=== PATIENT | female | born 1940 | race Caucasian/White ===

== ENCOUNTER 2017-07-12 17:08 | Inpatient (IN) | payer MEDICARE ==
[2017-07-12] MEDS ORDERED: Acetaminophen 325 MG TAB PO PRN (18:29)
[2017-07-12] MEDS ORDERED: Nystatin Powder 15 GM BOT TOP PRN (18:31)
[2017-07-12] MEDS ORDERED: Dextrose 5% in Water 1,000 ML IV PRN (18:35)
[2017-07-12] MEDS ORDERED: Dextrose 50% Abboject 50 ML SYRINGE SLOW IVP PRN (18:35)
[2017-07-12] MEDS ORDERED: GLIPIZIDE PO SCH (21:00)
[2017-07-12] MEDS ORDERED: METFORMIN HCL PO SCH (21:00)
[2017-07-12] MEDS: Apixaban 5 MG TAB PO SCH (21:12)
[2017-07-12] MEDS: Famotidine 20 MG TAB PO SCH (21:12)
[2017-07-12] MEDS: Atorvastatin Calcium 10 MG TAB PO SCH (21:12)
[2017-07-12] MEDS: Docusate 100 MG CAP PO SCH (21:12)
[2017-07-12] MEDS: Gabapentin 300 MG CAP PO SCH (21:13)
[2017-07-12] MEDS: glipiZIDE 5 MG TAB PO SCH (21:13)
[2017-07-12] MEDS: Metoprolol Tartrate 50 MG TAB PO SCH (21:14)
[2017-07-12] MEDS: metFORMIN 500 MG TAB PO SCH (21:15)
[2017-07-12] MEDS ORDERED: Insulin Regular 300 UNITS/3 ML VIAL SC PRN (21:23)
[2017-07-13] MEDS: Aspirin 325 MG TAB PO SCH (08:20)
[2017-07-13] MEDS: Gabapentin 300 MG CAP PO SCH ×2 (08:20→20:17)
[2017-07-13] MEDS: Furosemide 40 MG TAB PO SCH ×2 (08:20→15:13)
[2017-07-13] MEDS: metFORMIN 500 MG TAB PO SCH ×3 (08:20→20:18)
[2017-07-13] MEDS: Metoprolol Tartrate 50 MG TAB PO SCH ×2 (08:20→20:18)
[2017-07-13] MEDS: Metolazone 5 MG TAB PO SCH (08:20)
[2017-07-13] MEDS: Vit A,C & E/Lutein/Minerals Tablet PO SCH (08:20)
[2017-07-13] MEDS: Docusate 100 MG CAP PO SCH ×2 (08:20→20:28)
[2017-07-13] MEDS: Floranex Packet PO SCH (08:21)
[2017-07-13] MEDS: Famotidine 20 MG TAB PO SCH ×2 (08:21→20:18)
[2017-07-13] MEDS: glipiZIDE 5 MG TAB PO SCH ×3 (08:21→20:18)
[2017-07-13] MEDS: Apixaban 5 MG TAB PO SCH ×2 (08:21→20:28)
[2017-07-13] MEDS: Potassium Chloride 20 MEQ TAB PO SCH (08:21)
--- NOTE | 2017-07-13 08:21 | HP ---
DATE OF ADMISSION: 07/12/2017 ADMITTING PHYSICIAN: Stephen Funk MD REASON FOR ADMISSION: Extended stay in [facility] for physical deconditioning, status post aortic valve replacement, status post pacemaker placement, status post two bradycardic cardiac arrest. HISTORY OF PRESENT ILLNESS: Ms. Pollack is a 76-year-old female with a past medical history of coronary artery disease; aortic stenosis; dyslipidemia; hypertension; diabetes, type 2. Patient presented to [facility] on 06/17/2017, for an elective cardiac catheterization done by Dr. Butt due to worsening dyspnea and weakness. She was found to have LAD disease of 70 % with severe aortic stenosis. Patient was seen by cardiothoracic surgeon, Dr. Rodrigo Wiseman and decision was made to have an aortic valve replacement with bioprosthetic valve and coronary artery bypass grafting from [facility] with mammary artery to LAD. Surgery was done on 06/18/2017, and patient tolerated the procedure and was extubated on 06/19/2017, in ICU. Unfortunately, by the evening of 06/19/2017, patient became hypotensive and bradycardic and she coded. She had complete AV block and had a temporary pacemaker placed and high doses of pressors were needed to keep her stable. Patient was seen by Correction Officer, Dr. Juan C Jorgensen who recommended a permanent pacemaker when stable. On 06/20/2017 p.m., patient went back to complete AV block and hypotension as temporary pacemaker was dislodged. Patient coded and was emergently taken to phlebotomist medical lab assistant for placement of pacemaker again. On 06/21/2017, she received a dual chamber permanent pacemaker by Dr. Jorgensen. Due to multiple coding, patient developed acute hypoxic respiratory failure and had to be ventilated and slowly weaned off. Patient's hospitalization again was complicated by postoperative atrial fibrillation as she had to be placed on IV amiodarone and subsequently changed to oral amiodarone and this was rate controlled. She was initially anticoagulated with Lovenox, but changed to Eliquis prior to discharge. Preoperative imaging on CT showed a subcarinal adenopathy. Patient had a lymph node in the subcarinal area that was taken for biopsy during aortic valve placement. The patient was seen by credit card associate, Dr. Ruiz and findings were consistent for B-cell lymphoma. Patient's final diagnoses form [facility] are still pending and Dr. Ruiz recommend no urgent therapy required. This was discussed with patient and family. Patient had a CT done, which showed bilateral pleural effusions and this progressively worsened during admission. Effusion was secondary to volume resuscitation after 2 codes and she had to have thoracocentesis on the right on 06/27/2017, and on the left on 06/28/2017, before she was successfully extubated. Patient had a very complicated hospitalization, she also complained of right wrist pain and was seen by Dr. Camp who recommended NSAIDs due to osteoarthritis. Patient due to all complications sustained, became physically deconditioned. The patient was subsequently recommended will a need a long-term rehabilitation prior to discharge to her home. Her insurance denied her stay for inpatient penitentiary rehabilitation and she was subsequently transferred to [facility] to start skilled rehabilitation on 07/12/2017. Upon evaluation of patient today, she is alert, awake, and oriented x3. She is very weak, but denies any chest pain, shortness of breath, dizziness, abdominal pain, nausea, or vomiting. Patient denies any fever. Patient was happy to be out of hospital and just excited to start rehabilitation process prior to discharge back to the home. PAST MEDICAL HISTORY: Diabetes type 2, hypertension, hyperlipidemia, GERD, aortic stenosis, coronary artery disease. PAST SURGICAL HISTORY: Hysterectomy; carpal tunnel release; gastric surgery, now is status post thoracocentesis x2; status post aortic valve replacement. SOCIAL HISTORY: Denies tobacco use, denies alcohol use. Patient is , lives with her and daughter in the area. ALLERGIES: To PENICILLIN and SULFA. MEDICATIONS: Amiodarone 200 mg daily, Eliquis 5 mg b.i.d., aspirin 325 mg daily , Lasix 40 mg b.i.d., Neurontin 300 mg b.i.d., metolazone 5 mg daily, Lopressor 50 mg b.i.d., glipizide/metformin 1 tablet t.i.d., lovastatin 40 daily, Tarceva 20units every morning, potassium chloride 20 mEq daily. REVIEW OF SYSTEMS: Constitutional: Denies fevers, chills, or weight loss. Complains of generalized weakness. Eyes: Denies vision changes, eye pain. Respiratory: Denies cough, complains of mild shortness of breath. Cardiovascular: Denies chest pain, palpitations, or dizziness. Gastrointestinal: Denies nausea, vomiting, diarrhea, or constipation. Genitourinary: Denies incontinence, dysuria, or hematuria. Skin: Denies any rashes, has multiple bruising due to IV sites. Musculoskeletal: Complains of generalized weakness. Denies any joint pain or swelling. Neurological: Complains of weakness, denies numbness. Psychiatric: Denies hallucinations, delusions, complains of anxiety. PHYSICAL EXAMINATION: VITAL SIGNS: Temperature 97.9, pulse of 78, respirations 20, O2 saturation 90% , blood pressure 111/53. GENERAL APPEARANCE: Patient is alert, awake, oriented x3. Lying comfortably in bed, in no apparent distress. HEENT: Normocephalic, atraumatic. Sclerae icteric. Pupils are round, equal bilateral, reactive to light. Oral mucous membranes are moist. NECK: Supple, no lymphadenopathy, or thyromegaly. CARDIOVASCULAR: Rhythm is regular. Patient has normal S1 and S2. ABDOMEN: Positive bowel sounds, soft, nontender, and nondistended. EXTREMITIES: Patient has bilateral trace edema. MUSCULOSKELETAL: No swelling noted to the joints. NEUROLOGICAL: No focal deficits. PSYCHIATRIC: No hallucinations, no delusions. SKIN: Patient does have a large ecchymoses to abdomen, she does have well- healed with incisions to midline chest and to the left upper chest wall, nontender, no erythema or drainage to the sites. In the groin area, patient has some redness with no blistering and no wheezing noted. ASSESSMENT: 1. Physical deconditioning. 2. Status post aortic valve replacement and left internal mammary artery to LAD. 3. Status post bilateral pleural effusion with thoracocentesis on each side. 4. Status post permanent pacer. 5. Newly diagnosed lymphoma. 6. Diabetes, type 2. 7. Hyperlipidemia. 8. Hypertension. 9. Atrial Fibrillation, rate controlled. PLAN: The patient is to be admitted to [facility] swing bed for skilled rehabilitation and gait strengthening. We will consult physical therapy for strengthening in order to gain modified independence with gait and occupational therapy to help with activities of daily living prior to returning to the home. We will consult speech therapy due to prolonged intubation process. We will resume patient's home medications. We will monitor the patient closely for any medical comorbidity that may interfere with rehabilitation process. We will monitor the patient closely for any cardiac event or electrolyte abnormalities. We will place patient on Pepcid b.i.d. for gastrointestinal prophylaxis. For deep venous thrombosis prophylaxis, patient is on Eliquis and aspirin 325 mg. ESTIMATED LENGTH OF STAY: Four to six weeks. CODE STATUS: Patient is a FULL CODE. MTDD
[2017-07-13] MEDS ORDERED: FLU VACC TS2017-18 (>65YR) 0.5 ML SYRINGE IM ONE (09:00)
[2017-07-13] MEDS: Insulin Regular 300 UNITS/3 ML VIAL SC PRN ×2 (12:01→18:20)
[2017-07-13] MEDS: Atorvastatin Calcium 10 MG TAB PO SCH (20:17)
[2017-07-14] MEDS: Furosemide 40 MG TAB PO SCH ×2 (08:51→14:45)
[2017-07-14] MEDS: Famotidine 20 MG TAB PO SCH ×2 (08:52→20:13)
[2017-07-14] MEDS: metFORMIN 500 MG TAB PO SCH ×3 (08:52→20:15)
[2017-07-14] MEDS: Metoprolol Tartrate 50 MG TAB PO SCH ×2 (08:52→20:15)
[2017-07-14] MEDS: Docusate 100 MG CAP PO SCH ×2 (08:52→20:13)
[2017-07-14] MEDS: Potassium Chloride 20 MEQ TAB PO SCH (08:52)
[2017-07-14] MEDS: glipiZIDE 5 MG TAB PO SCH ×3 (08:52→20:14)
[2017-07-14] MEDS: Gabapentin 300 MG CAP PO SCH ×2 (08:52→20:14)
[2017-07-14] MEDS: Vit A,C & E/Lutein/Minerals Tablet PO SCH (08:52)
[2017-07-14] MEDS: Aspirin 325 MG TAB PO SCH (08:53)
[2017-07-14] MEDS: Apixaban 5 MG TAB PO SCH ×2 (08:53→20:13)
[2017-07-14] MEDS: Floranex Packet PO SCH (08:54)
[2017-07-14] MEDS: Metolazone 5 MG TAB PO SCH (08:54)
[2017-07-14] MEDS: Insulin Regular 300 UNITS/3 ML VIAL SC PRN ×2 (11:56→17:14)
[2017-07-14] MEDS: Atorvastatin Calcium 10 MG TAB PO SCH (20:13)
[2017-07-15 05:29] LABS: Anion Gap 17 mmol/L (10-20); BUN (Urea Nitrogen) 24 mg/dL (9.8-20.1); Calc. Creatinine Clearance 73 mL/min (70-130); Calcium 8.2 mg/dL (7.8-10.44); Carbon Dioxide 27 mmol/L (23-31); Chloride 97 mmol/L (98-107); Estimated GFR-MDRD 60; Glucose 127 mg/dL (83-110); Sodium 138 mmol/L (136-145)
[2017-07-15 05:30] LABS: #Basophils 0.2 thou/uL (0.0-0.2); #Eosinphils 0.3 thou/uL (0.0-0.7); #Lymphocytes 3.5 thou/uL (1.20-3.40); #Neutrophils 4.6 thou/uL (1.40-6.50); %Basophils 2.1 % (0.0-1.0); %Eosinophils 3.5 % (0.0-10.0); %Lymphocytes 36.6 % (21.0-51.0); %Monocytes 10.4 % (0.0-10.0); %Neutrophils 47.4 % (42.0-75.0); Hemoglobin 9.9 g/dL (12.0-16.0); Mean Corpuscular HGB CONC 32.7 g/dL (32.0-36.0); Mean Corpuscular Hemoglobin 29.4 pg (27.0-31.0); Mean Corpuscular Volume 89.8 fl (81.0-99.0); Mean Platelet Volume 9.6 fL (7.4-10.4); Platelet Count 186 thou/uL (130-400); RBC Distribution Width 15.8 % (11.5-14.5); Red Blood Cell (RBC) Count 3.38 mill/uL (4.20-5.40); White Blood Cell (WBC) Count 9.7 thou/uL (4.8-10.8)
[2017-07-15] MEDS: Potassium Chloride 20 MEQ TAB PO SCH (08:47)
[2017-07-15] MEDS: Apixaban 5 MG TAB PO SCH ×2 (08:48→20:49)
[2017-07-15] MEDS: Floranex Packet PO SCH (08:48)
[2017-07-15] MEDS: Aspirin 325 MG TAB PO SCH (08:48)
[2017-07-15] MEDS: Famotidine 20 MG TAB PO SCH ×2 (08:49→20:49)
[2017-07-15] MEDS: Docusate 100 MG CAP PO SCH ×2 (08:49→20:49)
[2017-07-15] MEDS: Gabapentin 300 MG CAP PO SCH ×2 (08:49→20:49)
[2017-07-15] MEDS: Furosemide 40 MG TAB PO SCH ×2 (08:49→14:28)
[2017-07-15] MEDS: glipiZIDE 5 MG TAB PO SCH ×3 (08:50→20:50)
[2017-07-15] MEDS: Metolazone 5 MG TAB PO SCH (08:51)
[2017-07-15] MEDS: metFORMIN 500 MG TAB PO SCH ×3 (08:51→20:52)
[2017-07-15] MEDS: Vit A,C & E/Lutein/Minerals Tablet PO SCH (08:52)
[2017-07-15] MEDS: Metoprolol Tartrate 50 MG TAB PO SCH ×2 (08:52→20:52)
[2017-07-15] MEDS ORDERED: Multivitamin W/ Minerals 1 TAB PO SCH (11:30)
[2017-07-15] MEDS ORDERED: Folic Acid 1 MG TAB PO SCH (11:30)
[2017-07-15] MEDS: Multivitamin W/ Minerals 1 TAB PO SCH (11:54)
[2017-07-15] MEDS: Insulin Regular 300 UNITS/3 ML VIAL SC PRN (11:56)
[2017-07-15] MEDS: Non-Formulary Item 1 EACH (Insulin Degludec [Tresiba Flextouch U-100] 20 UNIT) SQ SCH ×3 (12:50→12:57)
[2017-07-15] MEDS: PNV CMB PO SCH ×2 (12:56→12:57)
[2017-07-15] MEDS: IRON PO SCH ×2 (12:56→12:57)
[2017-07-15] MEDS: FOLIC ACID PO SCH ×2 (12:56→12:57)
[2017-07-15] MEDS: [UNRECOGNIZED DRUG - OTHER] PO SCH ×2 (12:56→12:57)
[2017-07-15] MEDS: Atorvastatin Calcium 10 MG TAB PO SCH (20:49)
[2017-07-15] MEDS: Levemir Flexpen 100 UNITS/ML PEN SC SCH (20:51)
[2017-07-16] MEDS: Potassium Chloride 20 MEQ TAB PO SCH (08:41)
[2017-07-16] MEDS: Floranex Packet PO SCH (08:41)
[2017-07-16] MEDS: Docusate 100 MG CAP PO SCH ×2 (08:42→20:54)
[2017-07-16] MEDS: Folic Acid 1 MG TAB PO SCH (08:42)
[2017-07-16] MEDS: Apixaban 5 MG TAB PO SCH ×2 (08:42→20:55)
[2017-07-16] MEDS: Famotidine 20 MG TAB PO SCH ×2 (08:42→20:54)
[2017-07-16] MEDS: Aspirin 325 MG TAB PO SCH (08:42)
[2017-07-16] MEDS: metFORMIN 500 MG TAB PO SCH ×3 (08:43→20:54)
[2017-07-16] MEDS: Furosemide 40 MG TAB PO SCH ×2 (08:43→15:03)
[2017-07-16] MEDS: Gabapentin 300 MG CAP PO SCH ×2 (08:43→20:54)
[2017-07-16] MEDS: Levemir Flexpen 100 UNITS/ML PEN SC SCH ×2 (08:43→20:55)
[2017-07-16] MEDS: Metoprolol Tartrate 50 MG TAB PO SCH ×2 (08:44→20:55)
[2017-07-16] MEDS: Vit A,C & E/Lutein/Minerals Tablet PO SCH (08:44)
[2017-07-16] MEDS: Multivitamin W/ Minerals 1 TAB PO SCH (08:44)
[2017-07-16] MEDS: Metolazone 5 MG TAB PO SCH (08:44)
[2017-07-16] MEDS: glipiZIDE 5 MG TAB PO SCH ×3 (08:45→20:54)
[2017-07-16] MEDS: Ondansetron ODT 4 MG TAB PO PRN (10:35)
[2017-07-16] MEDS: Insulin Regular 300 UNITS/3 ML VIAL SC PRN (12:04)
[2017-07-16] MEDS: Atorvastatin Calcium 10 MG TAB PO SCH (20:54)
[2017-07-17 06:21] LABS: Hemoglobin 9.8 g/dL (12.0-16.0); Platelet Count 184 thou/uL (130-400)
[2017-07-17 06:43] LABS: Anion Gap 13 mmol/L (10-20); BUN (Urea Nitrogen) 22 mg/dL (9.8-20.1); Calc. Creatinine Clearance 64 mL/min (70-130); Calcium 8.2 mg/dL (7.8-10.44); Carbon Dioxide 31 mmol/L (23-31); Chloride 96 mmol/L (98-107); Estimated GFR-MDRD 52; Glucose 83 mg/dL (83-110); Sodium 137 mmol/L (136-145)
[2017-07-17 06:56] LABS: Potassium 2.8 mmol/L (3.5-5.1)
[2017-07-17] MEDS ORDERED: Potassium Chloride 20 MEQ TAB PO SCH (07:45)
[2017-07-17] MEDS: Apixaban 5 MG TAB PO SCH ×2 (08:49→20:24)
[2017-07-17] MEDS: Furosemide 40 MG TAB PO SCH ×2 (08:50→14:53)
[2017-07-17] MEDS: Famotidine 20 MG TAB PO SCH ×2 (08:50→20:24)
[2017-07-17] MEDS: Gabapentin 300 MG CAP PO SCH ×2 (08:50→20:24)
[2017-07-17] MEDS: Aspirin 325 MG TAB PO SCH (08:50)
[2017-07-17] MEDS: glipiZIDE 5 MG TAB PO SCH ×3 (08:50→20:24)
[2017-07-17] MEDS: metFORMIN 500 MG TAB PO SCH ×3 (08:50→20:24)
[2017-07-17] MEDS: Potassium Chloride 20 MEQ TAB PO SCH (08:50)
[2017-07-17] MEDS: Folic Acid 1 MG TAB PO SCH (08:50)
[2017-07-17] MEDS: Levemir Flexpen 100 UNITS/ML PEN SC SCH ×2 (08:51→20:25)
[2017-07-17] MEDS: Metoprolol Tartrate 50 MG TAB PO SCH ×2 (08:51→20:24)
[2017-07-17] MEDS: Multivitamin W/ Minerals 1 TAB PO SCH (08:51)
[2017-07-17] MEDS: Docusate 100 MG CAP PO SCH ×2 (08:51→20:23)
[2017-07-17] MEDS: Floranex Packet PO SCH (08:51)
[2017-07-17] MEDS: Vit A,C & E/Lutein/Minerals Tablet PO SCH (08:51)
[2017-07-17] MEDS: Metolazone 5 MG TAB PO SCH (08:51)
[2017-07-17] MEDS: Insulin Regular 300 UNITS/3 ML VIAL SC PRN (12:11)
[2017-07-17] MEDS: Ondansetron ODT 4 MG TAB PO PRN (14:59)
[2017-07-17] MEDS ORDERED: Mag-Al Plus 1200 MG/1200 MG/120 MG/30 ML UDCUP PO PRN (16:50)
[2017-07-17] MEDS: Atorvastatin Calcium 10 MG TAB PO SCH (20:23)
[2017-07-18 05:48] LABS: Potassium 3.8 mmol/L (3.5-5.1)
[2017-07-18] MEDS: Multivitamin W/ Minerals 1 TAB PO SCH (08:23)
[2017-07-18] MEDS: Docusate 100 MG CAP PO SCH ×2 (08:23→20:39)
[2017-07-18] MEDS: Aspirin 325 MG TAB PO SCH (08:23)
[2017-07-18] MEDS: Potassium Chloride 20 MEQ TAB PO SCH (08:23)
[2017-07-18] MEDS: Metolazone 5 MG TAB PO SCH (08:23)
[2017-07-18] MEDS: Metoprolol Tartrate 50 MG TAB PO SCH ×2 (08:23→20:41)
[2017-07-18] MEDS: Furosemide 40 MG TAB PO SCH ×2 (08:23→14:53)
[2017-07-18] MEDS: Apixaban 5 MG TAB PO SCH ×2 (08:24→20:38)
[2017-07-18] MEDS: glipiZIDE 5 MG TAB PO SCH ×3 (08:24→20:40)
[2017-07-18] MEDS: metFORMIN 500 MG TAB PO SCH ×3 (08:24→20:41)
[2017-07-18] MEDS: Folic Acid 1 MG TAB PO SCH (08:24)
[2017-07-18] MEDS: Famotidine 20 MG TAB PO SCH ×2 (08:24→20:39)
[2017-07-18] MEDS: Vit A,C & E/Lutein/Minerals Tablet PO SCH (08:24)
[2017-07-18] MEDS: Gabapentin 300 MG CAP PO SCH ×2 (08:24→20:39)
[2017-07-18] MEDS: Floranex Packet PO SCH (08:25)
[2017-07-18] MEDS: Levemir Flexpen 100 UNITS/ML PEN SC SCH ×2 (08:25→20:40)
[2017-07-18] MEDS: Insulin Regular 300 UNITS/3 ML VIAL SC PRN (12:00)
[2017-07-18] MEDS: Atorvastatin Calcium 10 MG TAB PO SCH (20:38)
[2017-07-19 05:13] LABS: Hemoglobin 9.7 g/dL (12.0-16.0); Platelet Count 191 thou/uL (130-400)
[2017-07-19] MEDS: Floranex Packet PO SCH (08:07)
[2017-07-19] MEDS: Docusate 100 MG CAP PO SCH ×2 (08:08→20:39)
[2017-07-19] MEDS: Aspirin 325 MG TAB PO SCH (08:08)
[2017-07-19] MEDS: Potassium Chloride 20 MEQ TAB PO SCH (08:08)
[2017-07-19] MEDS: Multivitamin W/ Minerals 1 TAB PO SCH (08:08)
[2017-07-19] MEDS: glipiZIDE 5 MG TAB PO SCH ×3 (08:09→20:39)
[2017-07-19] MEDS: Metoprolol Tartrate 50 MG TAB PO SCH ×2 (08:10→20:39)
[2017-07-19] MEDS: Gabapentin 300 MG CAP PO SCH ×2 (08:10→20:39)
[2017-07-19] MEDS: Vit A,C & E/Lutein/Minerals Tablet PO SCH (08:10)
[2017-07-19] MEDS: Apixaban 5 MG TAB PO SCH ×2 (08:10→20:38)
[2017-07-19] MEDS: Famotidine 20 MG TAB PO SCH ×2 (08:10→20:40)
[2017-07-19] MEDS: Folic Acid 1 MG TAB PO SCH (08:10)
[2017-07-19] MEDS: metFORMIN 500 MG TAB PO SCH ×3 (08:10→20:39)
[2017-07-19] MEDS: Furosemide 40 MG TAB PO SCH ×2 (08:10→13:51)
[2017-07-19] MEDS: Metolazone 5 MG TAB PO SCH (08:11)
[2017-07-19] MEDS: Levemir Flexpen 100 UNITS/ML PEN SC SCH ×2 (08:11→20:40)
[2017-07-19] MEDS: Insulin Regular 300 UNITS/3 ML VIAL SC PRN ×2 (08:16→11:30)
[2017-07-19] MEDS: Atorvastatin Calcium 10 MG TAB PO SCH (20:39)
[2017-07-20] MEDS: Vit A,C & E/Lutein/Minerals Tablet PO SCH (09:26)
[2017-07-20] MEDS: Metolazone 5 MG TAB PO SCH (09:27)
[2017-07-20] MEDS: Potassium Chloride 20 MEQ TAB PO SCH (09:27)
[2017-07-20] MEDS: Apixaban 5 MG TAB PO SCH ×2 (09:27→20:28)
[2017-07-20] MEDS: metFORMIN 500 MG TAB PO SCH ×3 (09:28→20:28)
[2017-07-20] MEDS: Furosemide 40 MG TAB PO SCH ×2 (09:28→15:30)
[2017-07-20] MEDS: Folic Acid 1 MG TAB PO SCH (09:28)
[2017-07-20] MEDS: Docusate 100 MG CAP PO SCH ×2 (09:28→20:27)
[2017-07-20] MEDS: glipiZIDE 5 MG TAB PO SCH ×3 (09:28→20:27)
[2017-07-20] MEDS: Gabapentin 300 MG CAP PO SCH ×2 (09:29→20:28)
[2017-07-20] MEDS: Aspirin 325 MG TAB PO SCH (09:29)
[2017-07-20] MEDS: Metoprolol Tartrate 50 MG TAB PO SCH ×2 (09:29→20:28)
[2017-07-20] MEDS: Famotidine 20 MG TAB PO SCH ×2 (09:29→20:27)
[2017-07-20] MEDS: Floranex Packet PO SCH (09:30)
[2017-07-20] MEDS: Multivitamin W/ Minerals 1 TAB PO SCH (09:31)
[2017-07-20] MEDS: Levemir Flexpen 100 UNITS/ML PEN SC SCH ×2 (10:24→20:28)
[2017-07-20] MEDS: Insulin Regular 300 UNITS/3 ML VIAL SC PRN (13:51)
[2017-07-20] MEDS: Atorvastatin Calcium 10 MG TAB PO SCH (20:27)
[2017-07-21 05:31] LABS: Hemoglobin 9.9 g/dL (12.0-16.0); Platelet Count 214 thou/uL (130-400)
[2017-07-21] MEDS: Folic Acid 1 MG TAB PO SCH (08:10)
[2017-07-21] MEDS: Potassium Chloride 20 MEQ TAB PO SCH (08:10)
[2017-07-21] MEDS: Aspirin 325 MG TAB PO SCH (08:10)
[2017-07-21] MEDS: glipiZIDE 5 MG TAB PO SCH ×3 (08:11→20:32)
[2017-07-21] MEDS: Docusate 100 MG CAP PO SCH ×2 (08:11→20:32)
[2017-07-21] MEDS: Apixaban 5 MG TAB PO SCH ×2 (08:11→20:32)
[2017-07-21] MEDS: metFORMIN 500 MG TAB PO SCH ×3 (08:11→20:32)
[2017-07-21] MEDS: Levemir Flexpen 100 UNITS/ML PEN SC SCH ×2 (08:12→20:33)
[2017-07-21] MEDS: Metoprolol Tartrate 50 MG TAB PO SCH ×2 (08:12→20:32)
[2017-07-21] MEDS: Multivitamin W/ Minerals 1 TAB PO SCH (08:12)
[2017-07-21] MEDS: Famotidine 20 MG TAB PO SCH ×2 (08:12→20:32)
[2017-07-21] MEDS: Gabapentin 300 MG CAP PO SCH ×2 (08:12→20:32)
[2017-07-21] MEDS: Metolazone 5 MG TAB PO SCH (08:12)
[2017-07-21] MEDS: Furosemide 40 MG TAB PO SCH ×2 (08:12→14:15)
[2017-07-21] MEDS: Vit A,C & E/Lutein/Minerals Tablet PO SCH (08:12)
[2017-07-21] MEDS: Floranex Packet PO SCH (08:13)
[2017-07-21] MEDS: Insulin Regular 300 UNITS/3 ML VIAL SC PRN (11:40)
[2017-07-21] MEDS: Atorvastatin Calcium 10 MG TAB PO SCH (20:32)
[2017-07-22] MEDS: Aspirin 325 MG TAB PO SCH (08:43)
[2017-07-22] MEDS: Potassium Chloride 20 MEQ TAB PO SCH (08:43)
[2017-07-22] MEDS: Famotidine 20 MG TAB PO SCH ×2 (08:43→20:23)
[2017-07-22] MEDS: Floranex Packet PO SCH (08:43)
[2017-07-22] MEDS: Docusate 100 MG CAP PO SCH ×2 (08:44→20:24)
[2017-07-22] MEDS: Gabapentin 300 MG CAP PO SCH ×2 (08:44→20:23)
[2017-07-22] MEDS: Metolazone 5 MG TAB PO SCH (08:44)
[2017-07-22] MEDS: Vit A,C & E/Lutein/Minerals Tablet PO SCH (08:44)
[2017-07-22] MEDS: metFORMIN 500 MG TAB PO SCH ×3 (08:44→20:24)
[2017-07-22] MEDS: Folic Acid 1 MG TAB PO SCH (08:44)
[2017-07-22] MEDS: Metoprolol Tartrate 50 MG TAB PO SCH ×2 (08:45→20:24)
[2017-07-22] MEDS: glipiZIDE 5 MG TAB PO SCH ×3 (08:45→20:24)
[2017-07-22] MEDS: Multivitamin W/ Minerals 1 TAB PO SCH (08:45)
[2017-07-22] MEDS: Apixaban 5 MG TAB PO SCH ×2 (08:45→20:24)
[2017-07-22] MEDS: Levemir Flexpen 100 UNITS/ML PEN SC SCH ×2 (08:48→20:24)
[2017-07-22] MEDS: Furosemide 40 MG TAB PO SCH ×2 (08:48→13:43)
[2017-07-22] MEDS: Insulin Regular 300 UNITS/3 ML VIAL SC PRN (12:01)
[2017-07-22] MEDS: Atorvastatin Calcium 10 MG TAB PO SCH (20:24)
[2017-07-23 06:36] LABS: Hemoglobin 9.7 g/dL (12.0-16.0); Platelet Count 223 thou/uL (130-400)
[2017-07-23] MEDS: Docusate 100 MG CAP PO SCH ×2 (09:05→20:38)
[2017-07-23] MEDS: Potassium Chloride 20 MEQ TAB PO SCH (09:05)
[2017-07-23] MEDS: Floranex Packet PO SCH (09:05)
[2017-07-23] MEDS: Folic Acid 1 MG TAB PO SCH (09:05)
[2017-07-23] MEDS: Apixaban 5 MG TAB PO SCH ×2 (09:05→20:38)
[2017-07-23] MEDS: metFORMIN 500 MG TAB PO SCH ×3 (09:05→20:37)
[2017-07-23] MEDS: Vit A,C & E/Lutein/Minerals Tablet PO SCH (09:05)
[2017-07-23] MEDS: Gabapentin 300 MG CAP PO SCH ×2 (09:06→20:38)
[2017-07-23] MEDS: Metoprolol Tartrate 50 MG TAB PO SCH ×2 (09:06→20:38)
[2017-07-23] MEDS: Aspirin 325 MG TAB PO SCH (09:06)
[2017-07-23] MEDS: Famotidine 20 MG TAB PO SCH ×2 (09:06→20:37)
[2017-07-23] MEDS: Multivitamin W/ Minerals 1 TAB PO SCH (09:06)
[2017-07-23] MEDS: Levemir Flexpen 100 UNITS/ML PEN SC SCH ×2 (09:06→20:40)
[2017-07-23] MEDS: glipiZIDE 5 MG TAB PO SCH ×3 (09:06→20:37)
[2017-07-23] MEDS: Furosemide 40 MG TAB PO SCH ×2 (09:06→14:37)
[2017-07-23] MEDS: Metolazone 5 MG TAB PO SCH (09:06)
[2017-07-23] MEDS: Insulin Regular 300 UNITS/3 ML VIAL SC PRN (12:02)
[2017-07-23] MEDS: Atorvastatin Calcium 10 MG TAB PO SCH (20:38)
[2017-07-24] MEDS: Potassium Chloride 20 MEQ TAB PO SCH (08:44)
[2017-07-24] MEDS: Apixaban 5 MG TAB PO SCH ×2 (08:45→20:07)
[2017-07-24] MEDS: Floranex Packet PO SCH (08:45)
[2017-07-24] MEDS: Docusate 100 MG CAP PO SCH ×2 (08:45→20:07)
[2017-07-24] MEDS: Famotidine 20 MG TAB PO SCH ×2 (08:45→20:07)
[2017-07-24] MEDS: Aspirin 325 MG TAB PO SCH (08:45)
[2017-07-24] MEDS: Folic Acid 1 MG TAB PO SCH (08:45)
[2017-07-24] MEDS: glipiZIDE 5 MG TAB PO SCH ×3 (08:46→20:08)
[2017-07-24] MEDS: Furosemide 40 MG TAB PO SCH ×2 (08:46→14:39)
[2017-07-24] MEDS: Gabapentin 300 MG CAP PO SCH ×2 (08:46→20:07)
[2017-07-24] MEDS: metFORMIN 500 MG TAB PO SCH ×3 (08:47→20:09)
[2017-07-24] MEDS: Levemir Flexpen 100 UNITS/ML PEN SC SCH ×2 (08:47→20:11)
[2017-07-24] MEDS: Multivitamin W/ Minerals 1 TAB PO SCH (08:48)
[2017-07-24] MEDS: Metolazone 5 MG TAB PO SCH (08:48)
[2017-07-24] MEDS: Metoprolol Tartrate 50 MG TAB PO SCH ×2 (08:48→20:09)
[2017-07-24] MEDS: Vit A,C & E/Lutein/Minerals Tablet PO SCH (08:48)
[2017-07-24] MEDS: Insulin Regular 300 UNITS/3 ML VIAL SC PRN (12:22)
[2017-07-24] MEDS: Atorvastatin Calcium 10 MG TAB PO SCH (20:07)
[2017-07-25 05:22] LABS: Hemoglobin 9.9 g/dL (12.0-16.0); Platelet Count 240 thou/uL (130-400)
[2017-07-25 05:44] VITALS: BMI 29.4
[2017-07-25] MEDS: Metoprolol Tartrate 50 MG TAB PO SCH ×2 (08:26→21:34)
[2017-07-25] MEDS: Furosemide 40 MG TAB PO SCH ×2 (08:26→14:22)
[2017-07-25] MEDS: Aspirin 325 MG TAB PO SCH (08:26)
[2017-07-25] MEDS: Floranex Packet PO SCH (08:26)
[2017-07-25] MEDS: Potassium Chloride 20 MEQ TAB PO SCH (08:27)
[2017-07-25] MEDS: Famotidine 20 MG TAB PO SCH ×2 (08:27→21:21)
[2017-07-25] MEDS: Vit A,C & E/Lutein/Minerals Tablet PO SCH (08:27)
[2017-07-25] MEDS: Multivitamin W/ Minerals 1 TAB PO SCH (08:27)
[2017-07-25] MEDS: metFORMIN 500 MG TAB PO SCH ×3 (08:27→21:22)
[2017-07-25] MEDS: Metolazone 5 MG TAB PO SCH (08:27)
[2017-07-25] MEDS: Docusate 100 MG CAP PO SCH ×2 (08:28→21:21)
[2017-07-25] MEDS: Folic Acid 1 MG TAB PO SCH (08:28)
[2017-07-25] MEDS: glipiZIDE 5 MG TAB PO SCH ×3 (08:28→21:22)
[2017-07-25] MEDS: Apixaban 5 MG TAB PO SCH ×2 (08:28→21:25)
[2017-07-25] MEDS: Levemir Flexpen 100 UNITS/ML PEN SC SCH ×2 (08:36→21:32)
[2017-07-25] MEDS: Gabapentin 300 MG CAP PO SCH ×2 (09:28→21:21)
--- NOTE | 2017-07-25 15:35 | RAD ---
PORTABLE CHEST: DATE: 07/25/17. PROVIDED CLINICAL HISTORY: Pleural effusion. FINDINGS: Comparison is made with the study dated 07/09/17. There is left basilar pleural and/or parenchymal o pacity which appears more conspicuous than on the prior study. Interval improvement in aeration of the right lung base. Cardiac silhouette is largely obscured by the left hemithoracic opacity. Prom inence of the pulmonary vasculature is suspected. Median sternotomy changes, atherosclerosis, left subclavian cardiac pacing device, and right upper extremity PICC line redemonstrated. No evidence f or pneumothorax. IMPRESSION: Persistent and probably increasing left basilar pleural and/or parenchymal opacity. POS: [facility]
[2017-07-25] MEDS: Insulin Regular 300 UNITS/3 ML VIAL SC PRN (17:55)
[2017-07-25] MEDS: Atorvastatin Calcium 10 MG TAB PO SCH (21:23)
[2017-07-26] MEDS: Potassium Chloride 20 MEQ TAB PO SCH (07:54)
[2017-07-26] MEDS: Floranex Packet PO SCH (07:54)
[2017-07-26] MEDS: Famotidine 20 MG TAB PO SCH ×2 (07:55→20:58)
[2017-07-26] MEDS: Apixaban 5 MG TAB PO SCH ×2 (07:55→20:59)
[2017-07-26] MEDS: glipiZIDE 5 MG TAB PO SCH ×3 (07:55→20:59)
[2017-07-26] MEDS: Furosemide 40 MG TAB PO SCH ×2 (07:55→14:27)
[2017-07-26] MEDS: Aspirin 325 MG TAB PO SCH (07:55)
[2017-07-26] MEDS: Gabapentin 300 MG CAP PO SCH ×2 (07:55→20:57)
[2017-07-26] MEDS: Folic Acid 1 MG TAB PO SCH (07:55)
[2017-07-26] MEDS: Vit A,C & E/Lutein/Minerals Tablet PO SCH (07:56)
[2017-07-26] MEDS: Multivitamin W/ Minerals 1 TAB PO SCH (07:56)
[2017-07-26] MEDS: Metolazone 5 MG TAB PO SCH (07:56)
[2017-07-26] MEDS: Metoprolol Tartrate 50 MG TAB PO SCH ×2 (07:56→20:58)
[2017-07-26] MEDS: metFORMIN 500 MG TAB PO SCH ×3 (07:56→20:57)
[2017-07-26] MEDS: Levemir Flexpen 100 UNITS/ML PEN SC SCH ×2 (08:00→21:05)
[2017-07-26] MEDS: Docusate 100 MG CAP PO SCH ×2 (08:21→20:58)
[2017-07-26] MEDS: Insulin Regular 300 UNITS/3 ML VIAL SC PRN (11:25)
[2017-07-26] MEDS: Lidocaine Viscous Sol 2% 15 ml UD Cup SSW PRN ×2 (14:31→23:01)
[2017-07-26] MEDS: Atorvastatin Calcium 10 MG TAB PO SCH (20:58)
[2017-07-27 05:04] LABS: Hemoglobin 9.4 g/dL (12.0-16.0); Platelet Count 220 thou/uL (130-400)
[2017-07-27] MEDS: Gabapentin 300 MG CAP PO SCH ×2 (08:48→21:09)
[2017-07-27] MEDS: Potassium Chloride 20 MEQ TAB PO SCH (08:49)
[2017-07-27] MEDS: metFORMIN 500 MG TAB PO SCH ×3 (08:49→21:09)
[2017-07-27] MEDS: Vit A,C & E/Lutein/Minerals Tablet PO SCH (08:49)
[2017-07-27] MEDS: Metolazone 5 MG TAB PO SCH (08:49)
[2017-07-27] MEDS: Docusate 100 MG CAP PO SCH ×2 (08:50→21:09)
[2017-07-27] MEDS: Folic Acid 1 MG TAB PO SCH (08:50)
[2017-07-27] MEDS: glipiZIDE 5 MG TAB PO SCH ×3 (08:50→21:09)
[2017-07-27] MEDS: Furosemide 40 MG TAB PO SCH ×3 (08:50→15:44)
[2017-07-27] MEDS: Famotidine 20 MG TAB PO SCH ×2 (08:50→21:09)
[2017-07-27] MEDS: Aspirin 325 MG TAB PO SCH (08:50)
[2017-07-27] MEDS: Multivitamin W/ Minerals 1 TAB PO SCH (08:50)
[2017-07-27] MEDS: Apixaban 5 MG TAB PO SCH ×2 (08:51→21:09)
[2017-07-27] MEDS: Levemir Flexpen 100 UNITS/ML PEN SC SCH ×2 (08:51→21:11)
[2017-07-27] MEDS: Metoprolol Tartrate 50 MG TAB PO SCH ×2 (08:51→21:09)
[2017-07-27] MEDS: Floranex Packet PO SCH (08:51)
[2017-07-27] MEDS: Insulin Regular 300 UNITS/3 ML VIAL SC PRN (12:26)
[2017-07-27] MEDS: Atorvastatin Calcium 10 MG TAB PO SCH (21:09)
[2017-07-27] MEDS: Lidocaine Viscous Sol 2% 15 ml UD Cup SSW PRN (21:21)
[2017-07-28] MEDS: Metoprolol Tartrate 50 MG TAB PO SCH ×2 (08:35→20:27)
[2017-07-28] MEDS: Metolazone 5 MG TAB PO SCH (08:35)
[2017-07-28] MEDS: Potassium Chloride 20 MEQ TAB PO SCH (08:35)
[2017-07-28] MEDS: Docusate 100 MG CAP PO SCH ×2 (08:35→20:27)
[2017-07-28] MEDS: Vit A,C & E/Lutein/Minerals Tablet PO SCH (08:37)
[2017-07-28] MEDS: glipiZIDE 5 MG TAB PO SCH ×3 (08:37→20:27)
[2017-07-28] MEDS: Folic Acid 1 MG TAB PO SCH (08:37)
[2017-07-28] MEDS: Apixaban 5 MG TAB PO SCH ×2 (08:37→20:27)
[2017-07-28] MEDS: Multivitamin W/ Minerals 1 TAB PO SCH (08:37)
[2017-07-28] MEDS: Gabapentin 300 MG CAP PO SCH ×2 (08:37→20:27)
[2017-07-28] MEDS: Furosemide 40 MG TAB PO SCH ×2 (08:37→14:47)
[2017-07-28] MEDS: Famotidine 20 MG TAB PO SCH ×2 (08:37→20:27)
[2017-07-28] MEDS: Floranex Packet PO SCH (08:38)
[2017-07-28] MEDS: metFORMIN 500 MG TAB PO SCH ×3 (08:38→20:28)
[2017-07-28] MEDS: Levemir Flexpen 100 UNITS/ML PEN SC SCH ×2 (08:38→21:00)
[2017-07-28] MEDS: Aspirin 325 MG TAB PO SCH (08:38)
[2017-07-28] MEDS: Atorvastatin Calcium 10 MG TAB PO SCH (20:28)
[2017-07-29 06:36] LABS: Platelet Count 212 thou/uL (130-400)
[2017-07-29] MEDS: Potassium Chloride 20 MEQ TAB PO SCH (08:51)
[2017-07-29] MEDS: Docusate 100 MG CAP PO SCH ×2 (08:52→20:30)
[2017-07-29] MEDS: Aspirin 325 MG TAB PO SCH (08:52)
[2017-07-29] MEDS: Apixaban 5 MG TAB PO SCH ×2 (08:52→20:30)
[2017-07-29] MEDS: Floranex Packet PO SCH (08:52)
[2017-07-29] MEDS: Famotidine 20 MG TAB PO SCH ×2 (08:53→20:30)
[2017-07-29] MEDS: Gabapentin 300 MG CAP PO SCH ×2 (08:53→20:30)
[2017-07-29] MEDS: Folic Acid 1 MG TAB PO SCH (08:53)
[2017-07-29] MEDS: Furosemide 40 MG TAB PO SCH ×2 (08:53→13:45)
[2017-07-29] MEDS: glipiZIDE 5 MG TAB PO SCH ×3 (08:54→20:30)
[2017-07-29] MEDS: Levemir Flexpen 100 UNITS/ML PEN SC SCH ×2 (08:55→20:31)
[2017-07-29] MEDS: Metoprolol Tartrate 50 MG TAB PO SCH ×2 (08:55→20:30)
[2017-07-29] MEDS: Metolazone 5 MG TAB PO SCH (08:55)
[2017-07-29] MEDS: metFORMIN 500 MG TAB PO SCH ×3 (08:55→20:30)
[2017-07-29] MEDS: Multivitamin W/ Minerals 1 TAB PO SCH (08:55)
[2017-07-29] MEDS: Vit A,C & E/Lutein/Minerals Tablet PO SCH (08:55)
--- NOTE | 2017-07-29 11:10 | RAD ---
PA AND LATERAL VIEWS OF CHEST: Date: 07/29/17 HISTORY: Pleural effusion. FINDINGS/IMPRESSION: Comparison made with exam of 07/25/17. Changes of median sternotomy are again seen. Right upper extremity PICC line and left-sided pacemake r device remain in place. The pleural parenchymal changes in the left lower hemithorax are stable. N o pneumothoraces are seen. The right lung is unremarkable. POS: [facility]
[2017-07-29] MEDS: Insulin Regular 300 UNITS/3 ML VIAL SC PRN (12:24)
[2017-07-29] MEDS: Atorvastatin Calcium 10 MG TAB PO SCH (20:30)
[2017-07-29] MEDS: diphenhydrAMINE 25 MG CAP PO SCH (20:30)
[2017-07-30] MEDS: Floranex Packet PO SCH (08:42)
[2017-07-30] MEDS: Metolazone 5 MG TAB PO SCH (08:42)
[2017-07-30] MEDS: Potassium Chloride 20 MEQ TAB PO SCH (08:43)
[2017-07-30] MEDS: glipiZIDE 5 MG TAB PO SCH ×3 (08:43→20:27)
[2017-07-30] MEDS: Metoprolol Tartrate 50 MG TAB PO SCH ×2 (08:43→20:26)
[2017-07-30] MEDS: Gabapentin 300 MG CAP PO SCH ×2 (08:44→20:41)
[2017-07-30] MEDS: Famotidine 20 MG TAB PO SCH ×2 (08:44→20:28)
[2017-07-30] MEDS: Docusate 100 MG CAP PO SCH ×2 (08:44→20:26)
[2017-07-30] MEDS: Aspirin 325 MG TAB PO SCH (08:44)
[2017-07-30] MEDS: Multivitamin W/ Minerals 1 TAB PO SCH (08:44)
[2017-07-30] MEDS: metFORMIN 500 MG TAB PO SCH ×3 (08:44→20:26)
[2017-07-30] MEDS: Apixaban 5 MG TAB PO SCH ×2 (08:44→20:27)
[2017-07-30] MEDS: Vit A,C & E/Lutein/Minerals Tablet PO SCH (08:44)
[2017-07-30] MEDS: Furosemide 40 MG TAB PO SCH ×2 (08:44→14:42)
[2017-07-30] MEDS: Folic Acid 1 MG TAB PO SCH (08:45)
[2017-07-30] MEDS: Levemir Flexpen 100 UNITS/ML PEN SC SCH ×2 (08:46→20:31)
[2017-07-30] MEDS: diphenhydrAMINE 25 MG CAP PO SCH (20:26)
[2017-07-30] MEDS: Atorvastatin Calcium 10 MG TAB PO SCH (20:26)
[2017-07-31 06:20] LABS: Hemoglobin 10.2 g/dL (12.0-16.0); Platelet Count 211 thou/uL (130-400)
[2017-07-31 08:08] LABS: INR-International Normal Ratio 1.6; Prothrombin Time 19.2 SEC (12.0-14.7)
[2017-07-31] MEDS: Potassium Chloride 20 MEQ TAB PO SCH (08:53)
[2017-07-31] MEDS: Docusate 100 MG CAP PO SCH ×2 (08:54→20:53)
[2017-07-31] MEDS: Floranex Packet PO SCH (08:54)
[2017-07-31] MEDS: Aspirin 325 MG TAB PO SCH (08:54)
[2017-07-31] MEDS: Apixaban 5 MG TAB PO SCH ×2 (08:54→20:53)
[2017-07-31] MEDS: Folic Acid 1 MG TAB PO SCH (08:55)
[2017-07-31] MEDS: Furosemide 40 MG TAB PO SCH ×2 (08:55→15:07)
[2017-07-31] MEDS: Famotidine 20 MG TAB PO SCH ×2 (08:55→20:54)
[2017-07-31] MEDS: Gabapentin 300 MG CAP PO SCH ×2 (08:55→20:54)
[2017-07-31] MEDS: Levemir Flexpen 100 UNITS/ML PEN SC SCH ×2 (08:56→20:56)
[2017-07-31] MEDS: Metolazone 5 MG TAB PO SCH (08:56)
[2017-07-31] MEDS: glipiZIDE 5 MG TAB PO SCH ×3 (08:56→20:57)
[2017-07-31] MEDS: metFORMIN 500 MG TAB PO SCH ×3 (08:56→20:56)
[2017-07-31] MEDS: Metoprolol Tartrate 50 MG TAB PO SCH ×2 (08:56→20:54)
[2017-07-31] MEDS: Vit A,C & E/Lutein/Minerals Tablet PO SCH (08:57)
[2017-07-31] MEDS: Multivitamin W/ Minerals 1 TAB PO SCH (08:57)
[2017-07-31] MEDS: Insulin Regular 300 UNITS/3 ML VIAL SC PRN (16:40)
[2017-07-31] MEDS: diphenhydrAMINE 25 MG CAP PO SCH (20:53)
[2017-07-31] MEDS: Atorvastatin Calcium 10 MG TAB PO SCH (20:54)
[2017-08-01 05:34] LABS: INR-International Normal Ratio 1.6; Prothrombin Time 19.4 SEC (12.0-14.7)
[2017-08-01 05:35] LABS: PTT 60.1 SEC (22.9-36.1)
[2017-08-01 05:37] LABS: Hemoglobin A1c 5.8 % (4.0-6.0)
[2017-08-01 05:40] LABS: Anion Gap 14 mmol/L (10-20); BUN (Urea Nitrogen) 28 mg/dL (9.8-20.1); Calc. Creatinine Clearance 54 mL/min (70-130); Calcium 8.5 mg/dL (7.8-10.44); Carbon Dioxide 29 mmol/L (23-31); Chloride 100 mmol/L (98-107); Estimated GFR-MDRD 44; Glucose 142 mg/dL (83-110); Sodium 140 mmol/L (136-145)
[2017-08-01] MEDS: glipiZIDE 5 MG TAB PO SCH ×3 (09:00→20:45)
[2017-08-01] MEDS ORDERED: Potassium Chloride 20 MEQ TAB PO SCH (09:00)
[2017-08-01] MEDS: Multivitamin W/ Minerals 1 TAB PO SCH (09:00)
[2017-08-01] MEDS: Gabapentin 300 MG CAP PO SCH ×2 (09:00→20:44)
[2017-08-01] MEDS: Apixaban 5 MG TAB PO SCH ×2 (09:01→20:44)
[2017-08-01] MEDS: Vit A,C & E/Lutein/Minerals Tablet PO SCH (09:01)
[2017-08-01] MEDS: Metolazone 5 MG TAB PO SCH (09:01)
[2017-08-01] MEDS: Folic Acid 1 MG TAB PO SCH (09:01)
[2017-08-01] MEDS: Furosemide 40 MG TAB PO SCH ×2 (09:01→15:23)
[2017-08-01] MEDS: metFORMIN 500 MG TAB PO SCH ×3 (09:01→20:44)
[2017-08-01] MEDS: Potassium Chloride 20 MEQ TAB PO SCH (09:01)
[2017-08-01] MEDS: Famotidine 20 MG TAB PO SCH ×2 (09:01→20:44)
[2017-08-01] MEDS: Metoprolol Tartrate 50 MG TAB PO SCH ×2 (09:01→20:45)
[2017-08-01] MEDS: Aspirin 325 MG TAB PO SCH (09:01)
[2017-08-01] MEDS: Floranex Packet PO SCH (09:02)
[2017-08-01] MEDS: Docusate 100 MG CAP PO SCH ×2 (09:02→20:44)
[2017-08-01] MEDS: Insulin Regular 300 UNITS/3 ML VIAL SC PRN ×2 (09:03→12:15)
[2017-08-01] MEDS: Ondansetron ODT 4 MG TAB PO PRN (09:22)
[2017-08-01] MEDS: diphenhydrAMINE 25 MG CAP PO SCH (20:44)
[2017-08-01] MEDS: Atorvastatin Calcium 10 MG TAB PO SCH (20:44)
[2017-08-02 05:47] LABS: Hemoglobin 10.2 g/dL (12.0-16.0); Platelet Count 219 thou/uL (130-400)
[2017-08-02 09:27] VITALS: BP 113/53; TEMP 97.4
[2017-08-02] MEDS: Floranex Packet PO SCH (09:30)
[2017-08-02] MEDS: Aspirin 325 MG TAB PO SCH (09:31)
[2017-08-02] MEDS: Multivitamin W/ Minerals 1 TAB PO SCH (09:31)
[2017-08-02] MEDS: Vit A,C & E/Lutein/Minerals Tablet PO SCH (09:31)
[2017-08-02] MEDS: Potassium Chloride 20 MEQ TAB PO SCH (09:31)
[2017-08-02] MEDS: Metolazone 5 MG TAB PO SCH (09:31)
[2017-08-02] MEDS: Docusate 100 MG CAP PO SCH (09:31)
[2017-08-02] MEDS: glipiZIDE 5 MG TAB PO SCH (09:32)
[2017-08-02] MEDS: Gabapentin 300 MG CAP PO SCH (09:32)
[2017-08-02] MEDS: Apixaban 5 MG TAB PO SCH (09:32)
[2017-08-02] MEDS: metFORMIN 500 MG TAB PO SCH (09:32)
[2017-08-02] MEDS: Furosemide 40 MG TAB PO SCH (09:32)
[2017-08-02] MEDS: Metoprolol Tartrate 50 MG TAB PO SCH (09:32)
[2017-08-02] MEDS: Folic Acid 1 MG TAB PO SCH (09:33)
[2017-08-02] MEDS: Famotidine 20 MG TAB PO SCH (09:33)
[2017-08-02] MEDS: Insulin Regular 300 UNITS/3 ML VIAL SC PRN (09:34)
[2017-08-02] MEDS ORDERED: Spironolactone 25 MG TAB PO SCH (12:15)
--- NOTE | 2017-08-02 22:24 | DIS ---
DATE OF ADMISSION: 07/12/2017 DATE OF DISCHARGE: 08/02/2017 DISCHARGE PHYSICIAN: Stephen Funk MD PRIMARY CARE PHYSICIAN: Sarthak Bustamante M.D. FINAL DIAGNOSES: 1. Physical deconditioning, improving. 2. Status post aortic valve replacement. 3. Status post permanent pacemaker. 4. Status post bilateral pleural effusions thoracentesis. 5. Newly-diagnosed lymphoma, pending final biopsy result from [facility]. 6. Diabetes type 2. 7. Hyperlipidemia. 8. Postoperative atrial fibrillation, rate controlled. DISCHARGE MEDICATIONS: Amiodarone 200 daily, Eliquis 5 mg b.i.d., aspirin 325 daily, Lipitor 10 at bedtime, Floranex 1 gram daily, folic acid daily, K-Dur 40 mg daily, spironolactone 25 mg daily, Lopressor 50 mg b.i.d., metformin/ glipizide 500/2.5 mg t.i.d., gabapentin 300 b.i.d. DISCHARGE INSTRUCTIONS: [facility] to start nursing care, physical therapy and occupational therapy services. Home health to repeat potassium level on 08/05/2017. Fall precautions. Use rolling walker at all times. Follow up with primary care physician, Dr. Bustamante in 1 week. Follow up with Dr. Jorgensen next week 08/08/2016. Follow up with typewriter operator automatic, Dr. Butt in 2-3 weeks. BRIEF HOSPITAL COURSE: Ms. Pollack is a 76-year-old female who was admitted to [facility] on 06/17/2017 for an elective cardiac catheterization. The patient was subsequently noted to have severe aortic disease. She underwent aortic valve replacement. Postoperatively, initially, she did well but noted to have some bradycardia and eventually needed to have a permanent pacemaker placed. The patient also due to extensive hospitalization had bilateral pleural effusions and long-term intubation and thoracocentesis. She sustained postoperative atrial fibrillation and this was improved with medication. Due to the hospitalization, the patient was physically deconditioned and on 07/12/2017 was transferred here for skilled rehabilitation prior to going back to home. When the patient came to our facility, she was very weak. She could barely ambulate with a rolling walker to the bathroom. The patient underwent physical therapy and progressively improved, though she did not meet any of the goals of therapy. On the day of discharge, she was able to walk with a rolling walker about 150 feet. During hospitalization here, the patient had an episode of hypoglycemia and A1c was done and was noted to be 5.8, so the patient's insulin was discontinued. The patient's hospitalization progressively improved. She did well with physical therapy. She had episodes of hypokalemia and potassium was replaced as deemed necessary. The patient was eventually discharged home in a stable condition with [facility] under the care of her . The patient is to follow up with Dr. Jorgensen, 08/08/2016. She is to follow up with Dr. Butt in 2-3 weeks and she is to follow up with her primary care physician in 1 week. Home health is to repeat a potassium on 09/05/2016 , as her spironolactone was added back. FRANCISCO
== END 2017-08-02 13:45 | disposition home health service (06) | DRG 307 ==
LOC: MADMS 17:08
PROVIDERS: ADMIT Family Medicine; ATTEND Family Medicine
DX: I35.0 Nonrheumatic aortic (valve) stenosis (principal); I44.2 Atrioventricular block, complete; J90 Pleural effusion, not elsewhere classified; C85.10 Unspecified B-cell lymphoma, unspecified site; Z86.74 Personal history of sudden cardiac arrest; I25.10 Atherosclerotic heart disease of native coronary artery without angina pectoris; Z95.2 Presence of prosthetic heart valve; Z95.0 Presence of cardiac pacemaker; R53.1 Weakness; M19.031 Primary osteoarthritis, right wrist; E11.8 Type 2 diabetes mellitus with unspecified complications; Z79.4 Long term (current) use of insulin; I10 Essential (primary) hypertension; E78.5 Hyperlipidemia, unspecified; K21.9 Gastro-esophageal reflux disease without esophagitis; I48.91 Unspecified atrial fibrillation; E87.6 Hypokalemia; R07.0 Pain in throat; Z88.0 Allergy status to penicillin; Z88.2 Allergy status to sulfonamides
CPT/HCPCS: 36415; 36416; 71010; 71020; 80048; 82565; 83036; 84132; 85014; 85018; 85025; 85049; 85610; 85730; A4216; G8978-GP-CL; G8979-GP-CJ; G8996-GN-CK; G8997-GN-CK; J1815; Q0162

== ENCOUNTER 2017-08-19 13:27 | Inpatient (IN) | payer MEDICARE ==
[2017-08-19] MEDS ORDERED: Acetaminophen 325 MG TAB PO PRN (17:19)
[2017-08-19] MEDS ORDERED: Dextrose 5% in Water 1,000 ML IV PRN (17:21)
[2017-08-19] MEDS ORDERED: Dextrose 50% Abboject 50 ML SYRINGE SLOW IVP PRN (17:21)
[2017-08-19] MEDS ORDERED: guaiFENesin/DM ER PO PRN (17:24)
[2017-08-19] MEDS ORDERED: glipiZIDE 5 MG TAB PO SCH (18:00)
[2017-08-19] MEDS ORDERED: metFORMIN 500 MG TAB PO SCH (18:00)
[2017-08-19] MEDS: Atorvastatin Calcium 10 MG TAB PO SCH (20:38)
[2017-08-19] MEDS: Gabapentin 300 MG CAP PO SCH (20:38)
[2017-08-19] MEDS: Apixaban 5 MG TAB PO SCH (20:38)
[2017-08-19] MEDS: Carvedilol 3.125 MG TAB PO SCH (20:38)
[2017-08-19] MEDS: Fluticasone Propionate Nasal Spray 16 gm Bottle NASAL SCH (20:38)
[2017-08-19] MEDS: diphenhydrAMINE 25 MG CAP PO SCH (20:38)
--- NOTE | 2017-08-20 06:03 | HP ---
ADMITTING PHYSICIAN: Dr. Stephen Funk. PRIMARY CARE PHYSICIAN: Dr. Sarthak Bustamante. REASON FOR ADMISSION: An extended stay at [facility] for physical deconditioning, status post acute on chronic diastolic heart failure, status post large left-sided pleural effusion and status post acute hypoxic respiratory failure. HISTORY OF PRESENT ILLNESS: Ms. Pollack is a 76-year-old female who was recently discharged from [facility] after a 3-week hospitalization for skilled rehabilitation. The patient was discharged back home on 08/02 and she was subsequently readmitted back to [facility] on 11/2016 due to shortness of breath and lower extremity edema. The patient recently had a prolonged hospitalization after acute aortic valve replacement and pacemaker placement. She was in the rehab for 3 weeks and discharged back home for 1 week. The patient states she subsequently started having lower extremity edema and severe shortness of breath. The patient presented to her primary care physician's office, Dr. Sarthak Bustamante on 08/08 and was noted to be fluid overloaded and had a large left-sided pleural effusion. The patient was seen by breaker tender, Dr. Scott Kemp and Dr. Reich who continuously diuresed her and continued monitoring the pleural effusions. During the hospitalization, the patient initially needed oxygen, but this progressively improved and by day of discharge, she was able to be off oxygen and oximetry was 93% on room air. Patient due to physical deconditioning was recommended to continue physical therapy at the rehabilitation center prior to discharge to home. Upon evaluation of patient today, she is alert, awake and oriented x3. She states she is very weak, but denies chest pain, shortness of breath, dizziness, abdominal pain, nausea or vomiting. She is glad to be out of the hospital and back in [facility]. She is excited to start physical therapy again prior to discharge back to home. Patient has concerns about some of her medications and how the effects could cause her to have low blood pressure and she was reassured she will be monitored closely. PAST MEDICAL HISTORY: 1. Diabetes type 2. 2. Hypertension. 3. Gastroesophageal reflux disease. 4. Coronary artery disease. 5. History of atrial fibrillation. 6. Newly found B-cell lymphoma with final diagnoses from [facility]. PAST SURGICAL HISTORY: Hysterectomy, carpal tunnel release, gastric surgery, thoracocentesis and aortic valve replacement. ALLERGIES: PENICILLIN and SULFA. MEDICATIONS: Eliquis 5 mg b.i.d., aspirin 81 daily, Lipitor 10 at bedtime, carvedilol 3.125 b.i.d., Benadryl 25 at bedtime, Multaq 400 b.i.d., Lasix 40 b.i.d., gabapentin 300 b.i.d., metformin and glipizide 1 tab t.i.d. 5/500, spironolactone 50 daily and potassium chloride 20 daily. SOCIAL HISTORY: Denies alcohol or illicit drug use. Denies tobacco use. The patient is and lives at home with her . FAMILY HISTORY: Noncontributory. REVIEW OF SYSTEMS: General: Admits to weakness and fatigue. No fever or chills. HEENT: No diplopia, tinnitus, sore throat or hoarseness. Complains of dry cough. Cardiovascular: No chest pain, palpitations or dizziness. Gastrointestinal: Denies nausea, vomiting, diarrhea or constipation. Genitourinary: Denies dysuria or hematuria. Skin: Denies any rashes. Complains of multiple bruises due to the IV sites. Musculoskeletal: Complains of arthralgia. Complains of weakness. Denies any joint swelling or pain. Neurological: Complains of weakness. Denies any seizures. Denies any numbness. Psychiatric: Denies any hallucinations or delusions. Complains of some mild anxiety. PHYSICAL EXAMINATION: VITAL SIGNS: Temperature 98.8, pulse 86, respirations 20, O2 sat 96% on room air and blood pressure 132/63. GENERAL APPEARANCE: The patient is a very pleasant female, alert, awake and oriented x3, sitting up in bed, having dinner in no apparent distress. HEENT: Normocephalic and atraumatic. Sclerae icteric. Pupils are round, equal and reactive to light. Oral mucous membranes are moist. NECK: Supple. No lymphadenopathy, no thyromegaly. CARDIOVASCULAR: Rhythm is in regular rate. Normal S1 and S2. ABDOMEN: Positive bowel sounds. Soft, nontender and nondistended. EXTREMITIES: No edema bilaterally. RESPIRATORY: Decreased left-sided lower breath sounds, excellent air entry. No wheezing, no rhonchi, no crackles. SKIN: No evidence of ulcers or rash. Bruising to bilateral upper extremities. PSYCHIATRIC: No hallucination or delusion. NEUROLOGIC: No focal deficits. ASSESSMENT: 1. Physical deconditioning. 2. Large left-sided pleural effusion. 3. Acute on chronic diastolic and valvular heart failure. 4. Status post aortic valve replacement. 5. Newly diagnosed B cell lymphoma. 6. Type 2 diabetes. 7. Peripheral neuropathy. 8. Hyperlipidemia. 9. Hypertension. 10. Atrial fibrillation, rate controlled. PLAN: The patient is to admitted to [facility] for skilled rehabilitation and gait strengthening. We will consult physical therapy for strengthening in order to gain modified independence with gait and occupational therapy to help with activities of daily living. Prior to returning to her home , we will resume patient's home medications. We will monitor the patient closely for medical comorbidities that may interfere with rehabilitation process. We will monitor closely for any cardiac event or electrolyte abnormalities. We will place patient on Pepcid b.i.d. for gastrointestinal prophylaxis. We will continue patient on aspirin 81 mg daily and Eliquis for deep venous thrombosis prophylaxis. We will do blood sugars a.c. and at bedtime. We will place patient on sliding scale and resume diabetes oral medications. The patient will follow up with director of social services upon discharge and possible cardiac rehabilitation. FRANCISCO
[2017-08-20] MEDS ORDERED: glipiZIDE 5 MG TAB PO SCH (08:00)
[2017-08-20] MEDS: Carvedilol 3.125 MG TAB PO SCH ×2 (08:22→20:42)
[2017-08-20] MEDS: Spironolactone 25 MG TAB PO SCH (08:22)
[2017-08-20] MEDS: Aspirin 81 mg Enteric Coated Tablet PO SCH (08:22)
[2017-08-20] MEDS: Dronedarone HCl 400 MG TAB PO SCH ×2 (08:22→17:03)
[2017-08-20] MEDS: Furosemide 40 MG TAB PO SCH ×2 (08:23→14:08)
[2017-08-20] MEDS: Gabapentin 300 MG CAP PO SCH ×2 (08:23→20:42)
[2017-08-20] MEDS: glipiZIDE 5 MG TAB PO SCH ×3 (08:23→17:03)
[2017-08-20] MEDS: Potassium Chloride 20 MEQ TAB PO SCH (08:23)
[2017-08-20] MEDS: metFORMIN 500 MG TAB PO SCH ×3 (08:23→17:02)
[2017-08-20] MEDS: Apixaban 5 MG TAB PO SCH ×2 (08:23→20:42)
[2017-08-20] MEDS: Insulin Regular 300 UNITS/3 ML VIAL SC PRN ×3 (08:24→17:03)
[2017-08-20] MEDS: Fluticasone Propionate Nasal Spray 16 gm Bottle NASAL SCH ×2 (08:24→20:42)
[2017-08-20] MEDS: Atorvastatin Calcium 10 MG TAB PO SCH (20:42)
[2017-08-20] MEDS: diphenhydrAMINE 25 MG CAP PO SCH (20:42)
[2017-08-21 05:24] LABS: Hemoglobin 9.5 g/dL (12.0-16.0); Platelet Count 233 thou/uL (130-400)
[2017-08-21] MEDS: Insulin Regular 300 UNITS/3 ML VIAL SC PRN ×2 (08:11→12:00)
[2017-08-21] MEDS: Gabapentin 300 MG CAP PO SCH ×2 (08:13→20:28)
[2017-08-21] MEDS: Potassium Chloride 20 MEQ TAB PO SCH (08:13)
[2017-08-21] MEDS: Fluticasone Propionate Nasal Spray 16 gm Bottle NASAL SCH ×2 (08:13→20:27)
[2017-08-21] MEDS: Dronedarone HCl 400 MG TAB PO SCH ×2 (08:14→17:17)
[2017-08-21] MEDS: Spironolactone 25 MG TAB PO SCH (08:14)
[2017-08-21] MEDS: Apixaban 5 MG TAB PO SCH ×2 (08:14→20:28)
[2017-08-21] MEDS: Carvedilol 3.125 MG TAB PO SCH ×2 (08:14→20:28)
[2017-08-21] MEDS: Aspirin 81 mg Enteric Coated Tablet PO SCH (08:14)
[2017-08-21] MEDS: Furosemide 40 MG TAB PO SCH ×2 (08:14→13:59)
[2017-08-21] MEDS: metFORMIN 500 MG TAB PO SCH ×3 (08:14→17:17)
[2017-08-21] MEDS: glipiZIDE 5 MG TAB PO SCH ×3 (08:15→17:18)
[2017-08-21] MEDS: Atorvastatin Calcium 10 MG TAB PO SCH (20:28)
[2017-08-21] MEDS: Docusate 100 MG CAP PO SCH (20:28)
[2017-08-21] MEDS: diphenhydrAMINE 25 MG CAP PO SCH (20:28)
[2017-08-22] MEDS: Spironolactone 25 MG TAB PO SCH (08:17)
[2017-08-22] MEDS: glipiZIDE 5 MG TAB PO SCH ×3 (08:17→17:10)
[2017-08-22] MEDS: Apixaban 5 MG TAB PO SCH ×2 (08:17→21:18)
[2017-08-22] MEDS: Carvedilol 3.125 MG TAB PO SCH ×2 (08:17→21:18)
[2017-08-22] MEDS: Fluticasone Propionate Nasal Spray 16 gm Bottle NASAL SCH ×2 (08:17→21:18)
[2017-08-22] MEDS: Potassium Chloride 20 MEQ TAB PO SCH (08:18)
[2017-08-22] MEDS: Insulin Regular 300 UNITS/3 ML VIAL SC PRN ×2 (08:18→12:08)
[2017-08-22] MEDS: metFORMIN 500 MG TAB PO SCH ×3 (08:18→17:10)
[2017-08-22] MEDS: Aspirin 81 mg Enteric Coated Tablet PO SCH (08:18)
[2017-08-22] MEDS: Furosemide 40 MG TAB PO SCH ×2 (08:18→14:27)
[2017-08-22] MEDS: Dronedarone HCl 400 MG TAB PO SCH ×2 (08:18→17:10)
[2017-08-22] MEDS: Docusate 100 MG CAP PO SCH ×2 (08:18→21:18)
[2017-08-22] MEDS: Gabapentin 300 MG CAP PO SCH ×2 (08:18→21:18)
[2017-08-22] MEDS: diphenhydrAMINE 25 MG CAP PO SCH (21:18)
[2017-08-22] MEDS: Atorvastatin Calcium 10 MG TAB PO SCH (21:18)
[2017-08-23 06:24] LABS: Hemoglobin 9.6 g/dL (12.0-16.0); Platelet Count 213 thou/uL (130-400)
[2017-08-23] MEDS: Insulin Regular 300 UNITS/3 ML VIAL SC PRN ×3 (07:33→16:20)
[2017-08-23] MEDS: Dronedarone HCl 400 MG TAB PO SCH ×2 (07:34→16:15)
[2017-08-23] MEDS: metFORMIN 500 MG TAB PO SCH ×3 (07:35→16:14)
[2017-08-23] MEDS: glipiZIDE 5 MG TAB PO SCH ×3 (07:35→16:14)
[2017-08-23] MEDS: Potassium Chloride 20 MEQ TAB PO SCH (07:35)
[2017-08-23] MEDS: Furosemide 40 MG TAB PO SCH ×2 (09:21→14:09)
[2017-08-23] MEDS: Spironolactone 25 MG TAB PO SCH (09:21)
[2017-08-23] MEDS: Carvedilol 3.125 MG TAB PO SCH ×2 (09:21→20:37)
[2017-08-23] MEDS: Aspirin 81 mg Enteric Coated Tablet PO SCH (09:22)
[2017-08-23] MEDS: Gabapentin 300 MG CAP PO SCH ×2 (09:22→20:37)
[2017-08-23] MEDS: Apixaban 5 MG TAB PO SCH ×2 (09:22→20:37)
[2017-08-23] MEDS: Docusate 100 MG CAP PO SCH ×2 (09:22→20:37)
[2017-08-23] MEDS: Fluticasone Propionate Nasal Spray 16 gm Bottle NASAL SCH ×2 (09:23→20:00)
[2017-08-23] MEDS: Atorvastatin Calcium 10 MG TAB PO SCH (20:37)
[2017-08-23] MEDS: diphenhydrAMINE 25 MG CAP PO SCH (20:37)
[2017-08-24] MEDS: Spironolactone 25 MG TAB PO SCH (08:17)
[2017-08-24] MEDS: Potassium Chloride 20 MEQ TAB PO SCH (08:17)
[2017-08-24] MEDS: Aspirin 81 mg Enteric Coated Tablet PO SCH (08:17)
[2017-08-24] MEDS: Docusate 100 MG CAP PO SCH ×2 (08:17→20:27)
[2017-08-24] MEDS: Dronedarone HCl 400 MG TAB PO SCH ×2 (08:18→17:22)
[2017-08-24] MEDS: glipiZIDE 5 MG TAB PO SCH ×3 (08:18→17:22)
[2017-08-24] MEDS: Fluticasone Propionate Nasal Spray 16 gm Bottle NASAL SCH ×2 (08:18→20:28)
[2017-08-24] MEDS: Insulin Regular 300 UNITS/3 ML VIAL SC PRN ×3 (08:18→17:22)
[2017-08-24] MEDS: Furosemide 40 MG TAB PO SCH ×3 (08:18→15:12)
[2017-08-24] MEDS: Apixaban 5 MG TAB PO SCH ×2 (08:18→20:27)
[2017-08-24] MEDS: Carvedilol 3.125 MG TAB PO SCH ×2 (08:18→20:29)
[2017-08-24] MEDS: Gabapentin 300 MG CAP PO SCH ×2 (08:18→20:27)
[2017-08-24] MEDS: metFORMIN 500 MG TAB PO SCH ×3 (08:18→17:22)
[2017-08-24] MEDS: Atorvastatin Calcium 10 MG TAB PO SCH (20:27)
[2017-08-24] MEDS: diphenhydrAMINE 25 MG CAP PO SCH (20:27)
[2017-08-25 07:03] LABS: Hemoglobin 10.1 g/dL (12.0-16.0); Platelet Count 218 thou/uL (130-400)
[2017-08-25] MEDS: Insulin Regular 300 UNITS/3 ML VIAL SC PRN (08:10)
[2017-08-25] MEDS: Fluticasone Propionate Nasal Spray 16 gm Bottle NASAL SCH ×2 (08:10→20:54)
[2017-08-25] MEDS: Apixaban 5 MG TAB PO SCH ×2 (08:11→20:55)
[2017-08-25] MEDS: Docusate 100 MG CAP PO SCH ×2 (08:11→20:55)
[2017-08-25] MEDS: Carvedilol 3.125 MG TAB PO SCH ×2 (08:11→20:55)
[2017-08-25] MEDS: Spironolactone 25 MG TAB PO SCH (08:11)
[2017-08-25] MEDS: Aspirin 81 mg Enteric Coated Tablet PO SCH (08:11)
[2017-08-25] MEDS: Furosemide 40 MG TAB PO SCH ×2 (08:11→14:04)
[2017-08-25] MEDS: Potassium Chloride 20 MEQ TAB PO SCH (08:11)
[2017-08-25] MEDS: Dronedarone HCl 400 MG TAB PO SCH ×2 (08:12→17:13)
[2017-08-25] MEDS: glipiZIDE 5 MG TAB PO SCH ×3 (08:12→17:13)
[2017-08-25] MEDS: Gabapentin 300 MG CAP PO SCH ×2 (08:12→20:55)
[2017-08-25] MEDS: metFORMIN 500 MG TAB PO SCH ×3 (08:12→17:12)
[2017-08-25] MEDS: Ondansetron ODT 4 MG TAB PO PRN (10:52)
[2017-08-25] MEDS: Atorvastatin Calcium 10 MG TAB PO SCH (20:55)
[2017-08-25] MEDS: diphenhydrAMINE 25 MG CAP PO SCH (20:55)
[2017-08-26] MEDS: Dronedarone HCl 400 MG TAB PO SCH ×2 (09:02→17:17)
[2017-08-26] MEDS: Potassium Chloride 20 MEQ TAB PO SCH (09:02)
[2017-08-26] MEDS: Apixaban 5 MG TAB PO SCH ×2 (09:03→21:38)
[2017-08-26] MEDS: Fluticasone Propionate Nasal Spray 16 gm Bottle NASAL SCH ×2 (09:03→21:39)
[2017-08-26] MEDS: metFORMIN 500 MG TAB PO SCH ×3 (09:04→17:17)
[2017-08-26] MEDS: Furosemide 40 MG TAB PO SCH ×2 (09:05→13:50)
[2017-08-26] MEDS: Aspirin 81 mg Enteric Coated Tablet PO SCH (09:05)
[2017-08-26] MEDS: glipiZIDE 5 MG TAB PO SCH ×3 (09:05→17:17)
[2017-08-26] MEDS: Spironolactone 25 MG TAB PO SCH (09:06)
[2017-08-26] MEDS: Carvedilol 3.125 MG TAB PO SCH ×2 (09:06→21:38)
[2017-08-26] MEDS: Docusate 100 MG CAP PO SCH ×2 (09:06→21:38)
[2017-08-26] MEDS: Gabapentin 300 MG CAP PO SCH ×2 (09:07→21:38)
[2017-08-26] MEDS: Insulin Regular 300 UNITS/3 ML VIAL SC PRN ×2 (09:07→11:38)
[2017-08-26] MEDS: Atorvastatin Calcium 10 MG TAB PO SCH (21:38)
[2017-08-26] MEDS: diphenhydrAMINE 25 MG CAP PO SCH (21:38)
[2017-08-27 06:20] LABS: Hemoglobin 9.8 g/dL (12.0-16.0); Platelet Count 228 thou/uL (130-400)
[2017-08-27] MEDS: glipiZIDE 5 MG TAB PO SCH ×3 (09:05→17:36)
[2017-08-27] MEDS: Dronedarone HCl 400 MG TAB PO SCH ×2 (09:05→17:36)
[2017-08-27] MEDS: metFORMIN 500 MG TAB PO SCH ×3 (09:06→17:36)
[2017-08-27] MEDS: Carvedilol 3.125 MG TAB PO SCH ×2 (09:06→20:28)
[2017-08-27] MEDS: Docusate 100 MG CAP PO SCH ×2 (09:06→20:28)
[2017-08-27] MEDS: Apixaban 5 MG TAB PO SCH ×2 (09:06→20:28)
[2017-08-27] MEDS: Potassium Chloride 20 MEQ TAB PO SCH (09:06)
[2017-08-27] MEDS: Fluticasone Propionate Nasal Spray 16 gm Bottle NASAL SCH ×2 (09:06→20:28)
[2017-08-27] MEDS: Aspirin 81 mg Enteric Coated Tablet PO SCH (09:06)
[2017-08-27] MEDS: Gabapentin 300 MG CAP PO SCH ×2 (09:07→20:28)
[2017-08-27] MEDS: Furosemide 40 MG TAB PO SCH ×2 (09:07→14:57)
[2017-08-27] MEDS: Spironolactone 25 MG TAB PO SCH (09:07)
[2017-08-27] MEDS: Insulin Regular 300 UNITS/3 ML VIAL SC PRN ×2 (09:10→12:14)
[2017-08-27] MEDS: Atorvastatin Calcium 10 MG TAB PO SCH (20:28)
[2017-08-27] MEDS: diphenhydrAMINE 25 MG CAP PO SCH (20:28)
[2017-08-28] MEDS: Furosemide 40 MG TAB PO SCH ×2 (08:58→14:40)
[2017-08-28] MEDS: Carvedilol 3.125 MG TAB PO SCH ×2 (08:58→20:55)
[2017-08-28] MEDS: Spironolactone 25 MG TAB PO SCH (08:58)
[2017-08-28] MEDS: Apixaban 5 MG TAB PO SCH ×2 (08:58→20:56)
[2017-08-28] MEDS: metFORMIN 500 MG TAB PO SCH ×3 (08:58→17:05)
[2017-08-28] MEDS: Gabapentin 300 MG CAP PO SCH ×2 (08:59→20:56)
[2017-08-28] MEDS: Fluticasone Propionate Nasal Spray 16 gm Bottle NASAL SCH ×2 (08:59→20:55)
[2017-08-28] MEDS: Dronedarone HCl 400 MG TAB PO SCH ×2 (08:59→17:05)
[2017-08-28] MEDS: Docusate 100 MG CAP PO SCH ×2 (08:59→20:56)
[2017-08-28] MEDS: Aspirin 81 mg Enteric Coated Tablet PO SCH (08:59)
[2017-08-28] MEDS: Potassium Chloride 20 MEQ TAB PO SCH (08:59)
[2017-08-28] MEDS: glipiZIDE 5 MG TAB PO SCH ×3 (08:59→17:05)
[2017-08-28] MEDS: Insulin Regular 300 UNITS/3 ML VIAL SC PRN (11:45)
[2017-08-28] MEDS: Ondansetron ODT 4 MG TAB PO PRN (12:23)
[2017-08-28] MEDS: diphenhydrAMINE 25 MG CAP PO SCH (20:55)
[2017-08-28] MEDS: Atorvastatin Calcium 10 MG TAB PO SCH (20:56)
[2017-08-29 05:11] LABS: Hemoglobin 9.6 g/dL (12.0-16.0); Platelet Count 230 thou/uL (130-400)
[2017-08-29] MEDS: Insulin Regular 300 UNITS/3 ML VIAL SC PRN ×3 (08:21→17:10)
[2017-08-29] MEDS: Fluticasone Propionate Nasal Spray 16 gm Bottle NASAL SCH ×2 (08:21→20:29)
[2017-08-29] MEDS: Aspirin 81 mg Enteric Coated Tablet PO SCH (08:22)
[2017-08-29] MEDS: Furosemide 40 MG TAB PO SCH ×2 (08:22→14:26)
[2017-08-29] MEDS: glipiZIDE 5 MG TAB PO SCH ×3 (08:22→17:10)
[2017-08-29] MEDS: Carvedilol 3.125 MG TAB PO SCH ×2 (08:22→20:29)
[2017-08-29] MEDS: Apixaban 5 MG TAB PO SCH ×2 (08:22→20:29)
[2017-08-29] MEDS: Gabapentin 300 MG CAP PO SCH ×2 (08:22→20:29)
[2017-08-29] MEDS: Docusate 100 MG CAP PO SCH ×2 (08:22→20:29)
[2017-08-29] MEDS: metFORMIN 500 MG TAB PO SCH ×3 (08:22→17:09)
[2017-08-29] MEDS: Spironolactone 25 MG TAB PO SCH (08:22)
[2017-08-29] MEDS: Dronedarone HCl 400 MG TAB PO SCH ×2 (08:22→17:10)
[2017-08-29] MEDS: Potassium Chloride 20 MEQ TAB PO SCH (08:23)
[2017-08-29] MEDS: diphenhydrAMINE 25 MG CAP PO SCH (20:29)
[2017-08-29] MEDS: Atorvastatin Calcium 10 MG TAB PO SCH (20:29)
[2017-08-30] MEDS: Potassium Chloride 20 MEQ TAB PO SCH (07:52)
[2017-08-30] MEDS: glipiZIDE 5 MG TAB PO SCH ×3 (07:53→16:51)
[2017-08-30] MEDS: Insulin Regular 300 UNITS/3 ML VIAL SC PRN ×2 (07:53→12:04)
[2017-08-30] MEDS: Dronedarone HCl 400 MG TAB PO SCH ×2 (07:53→16:51)
[2017-08-30] MEDS: metFORMIN 500 MG TAB PO SCH ×3 (07:53→16:51)
[2017-08-30] MEDS: Aspirin 81 mg Enteric Coated Tablet PO SCH (08:01)
[2017-08-30] MEDS: Apixaban 5 MG TAB PO SCH ×2 (08:01→21:18)
[2017-08-30] MEDS: Docusate 100 MG CAP PO SCH ×2 (08:02→21:18)
[2017-08-30] MEDS: Fluticasone Propionate Nasal Spray 16 gm Bottle NASAL SCH ×2 (08:02→21:21)
[2017-08-30] MEDS: Gabapentin 300 MG CAP PO SCH ×2 (08:02→21:17)
[2017-08-30] MEDS: Spironolactone 25 MG TAB PO SCH (08:02)
[2017-08-30] MEDS: Carvedilol 3.125 MG TAB PO SCH ×2 (08:02→21:18)
[2017-08-30] MEDS: Furosemide 40 MG TAB PO SCH ×2 (08:02→13:41)
[2017-08-30] MEDS: Atorvastatin Calcium 10 MG TAB PO SCH (21:17)
[2017-08-30] MEDS: diphenhydrAMINE 25 MG CAP PO SCH (21:18)
[2017-08-31] MEDS: Potassium Chloride 20 MEQ TAB PO SCH (08:55)
[2017-08-31] MEDS: Dronedarone HCl 400 MG TAB PO SCH ×2 (08:55→17:20)
[2017-08-31] MEDS: glipiZIDE 5 MG TAB PO SCH ×3 (08:55→17:20)
[2017-08-31] MEDS: metFORMIN 500 MG TAB PO SCH ×3 (08:55→17:20)
[2017-08-31] MEDS: Apixaban 5 MG TAB PO SCH ×2 (08:55→22:18)
[2017-08-31] MEDS: Furosemide 40 MG TAB PO SCH ×2 (08:56→15:20)
[2017-08-31] MEDS: Gabapentin 300 MG CAP PO SCH ×2 (08:56→22:19)
[2017-08-31] MEDS: Spironolactone 25 MG TAB PO SCH (08:56)
[2017-08-31] MEDS: Carvedilol 3.125 MG TAB PO SCH ×2 (08:56→22:18)
[2017-08-31] MEDS: Docusate 100 MG CAP PO SCH ×2 (08:56→22:18)
[2017-08-31] MEDS: Fluticasone Propionate Nasal Spray 16 gm Bottle NASAL SCH ×2 (08:56→22:36)
[2017-08-31] MEDS: Aspirin 81 mg Enteric Coated Tablet PO SCH (08:56)
[2017-08-31] MEDS: Insulin Regular 300 UNITS/3 ML VIAL SC PRN ×2 (08:57→12:06)
[2017-08-31] MEDS: Atorvastatin Calcium 10 MG TAB PO SCH (22:18)
[2017-08-31] MEDS: diphenhydrAMINE 25 MG CAP PO SCH (22:18)
[2017-09-01] MEDS: Apixaban 5 MG TAB PO SCH ×2 (08:27→20:46)
[2017-09-01] MEDS: Potassium Chloride 20 MEQ TAB PO SCH (08:27)
[2017-09-01] MEDS: Aspirin 81 mg Enteric Coated Tablet PO SCH (08:27)
[2017-09-01] MEDS: metFORMIN 500 MG TAB PO SCH ×3 (08:27→18:08)
[2017-09-01] MEDS: Dronedarone HCl 400 MG TAB PO SCH ×2 (08:27→18:08)
[2017-09-01] MEDS: Carvedilol 3.125 MG TAB PO SCH ×2 (08:27→20:46)
[2017-09-01] MEDS: glipiZIDE 5 MG TAB PO SCH ×3 (08:27→18:08)
[2017-09-01] MEDS: Fluticasone Propionate Nasal Spray 16 gm Bottle NASAL SCH ×2 (08:28→20:47)
[2017-09-01] MEDS: Gabapentin 300 MG CAP PO SCH ×2 (08:28→20:46)
[2017-09-01] MEDS: Furosemide 40 MG TAB PO SCH ×2 (08:28→14:57)
[2017-09-01] MEDS: Insulin Regular 300 UNITS/3 ML VIAL SC PRN ×2 (08:28→12:06)
[2017-09-01] MEDS: Spironolactone 25 MG TAB PO SCH (08:28)
[2017-09-01] MEDS: Docusate 100 MG CAP PO SCH ×2 (08:28→20:46)
[2017-09-01] MEDS: diphenhydrAMINE 25 MG CAP PO SCH (20:46)
[2017-09-01] MEDS: Atorvastatin Calcium 10 MG TAB PO SCH (20:46)
[2017-09-02] MEDS: metFORMIN 500 MG TAB PO SCH ×3 (08:47→17:45)
[2017-09-02] MEDS: Apixaban 5 MG TAB PO SCH ×2 (08:47→21:08)
[2017-09-02] MEDS: Potassium Chloride 20 MEQ TAB PO SCH (08:47)
[2017-09-02] MEDS: Dronedarone HCl 400 MG TAB PO SCH ×2 (08:47→17:45)
[2017-09-02] MEDS: glipiZIDE 5 MG TAB PO SCH ×3 (08:47→17:45)
[2017-09-02] MEDS: Gabapentin 300 MG CAP PO SCH ×2 (08:48→21:08)
[2017-09-02] MEDS: Spironolactone 25 MG TAB PO SCH (08:48)
[2017-09-02] MEDS: Docusate 100 MG CAP PO SCH ×2 (08:48→21:08)
[2017-09-02] MEDS: Aspirin 81 mg Enteric Coated Tablet PO SCH (08:48)
[2017-09-02] MEDS: Carvedilol 3.125 MG TAB PO SCH ×2 (08:48→21:08)
[2017-09-02] MEDS: Furosemide 40 MG TAB PO SCH ×2 (08:48→14:52)
[2017-09-02] MEDS: Fluticasone Propionate Nasal Spray 16 gm Bottle NASAL SCH ×2 (08:48→21:08)
[2017-09-02] MEDS: Insulin Regular 300 UNITS/3 ML VIAL SC PRN ×2 (08:51→12:02)
--- NOTE | 2017-09-02 19:19 | RAD ---
CHEST PA AND LATERAL: History: 76-year-old female status post pacemaker and valve replacement two months ago with weight loss. Comparison: 08-19-17 FINDINGS: Post op midline sternotomy and valvular replacement. Left ICD. Small left pleural effusion decreasing from prior exam. Mild vascular congestion, stable. No confluent pneumonia. IMPRESSION: Decreasing small left pleural effusion. Post underlying sternotomy and aortic valve replacement. Left ICD. No new process. POS: [facility]
[2017-09-02] MEDS: diphenhydrAMINE 25 MG CAP PO SCH (21:08)
[2017-09-02] MEDS: Atorvastatin Calcium 10 MG TAB PO SCH (21:08)
[2017-09-03 05:24] LABS: INR-International Normal Ratio 1.7; Prothrombin Time 20.5 SEC (12.0-14.7)
[2017-09-03 05:25] LABS: PTT 66.8 SEC (22.9-36.1)
[2017-09-03 05:28] LABS: Hemoglobin A1c 6.1 % (4.0-6.0)
[2017-09-03 05:30] LABS: #Basophils 0.2 thou/uL (0.0-0.2); #Eosinphils 0.3 thou/uL (0.0-0.7); #Monocytes 0.7 thou/uL (0.11-0.59); #Neutrophils 3.3 thou/uL (1.40-6.50); %Basophils 2.5 % (0.0-1.0); %Lymphocytes 40.2 % (21.0-51.0); %Monocytes 9.6 % (0.0-10.0); %Neutrophils 43.7 % (42.0-75.0); Hemoglobin 9.7 g/dL (12.0-16.0); Mean Corpuscular HGB CONC 32.8 g/dL (32.0-36.0); Mean Corpuscular Hemoglobin 29.4 pg (27.0-31.0); Mean Corpuscular Volume 89.6 fl (81.0-99.0); Mean Platelet Volume 7.9 fL (7.4-10.4); Platelet Count 237 thou/uL (130-400); RBC Distribution Width 14.6 % (11.5-14.5); White Blood Cell (WBC) Count 7.5 thou/uL (4.8-10.8)
[2017-09-03 05:33] LABS: ALT (SGPT) 14 U/L (8-55); AST (SGOT) 22 U/L (5-34); Albumin 3.6 g/dL (3.4-4.8); Alkaline Phosphatase 66 U/L (40-150); Anion Gap 15 mmol/L (10-20); BUN (Urea Nitrogen) 36 mg/dL (9.8-20.1); Bilirubin, Total 0.9 mg/dL (0.2-1.2); Calc. Creatinine Clearance 34 mL/min (70-130); Calcium 9.2 mg/dL (7.8-10.44); Carbon Dioxide 25 mmol/L (23-31); Cardiac Risk 4.1 (Less than 4.5); Chloride 99 mmol/L (98-107); Cholesterol 111 mg/dl (< 200 Desired); Estimated GFR-MDRD 30; Globulin 2.3 g/dL (2.4-3.5); Glucose 148 mg/dL (83-110); HDL Cholesterol 27 mg/dL (>60 Neg Risk); LDL Cholesterol, Calculated 59 mg/dL; Potassium 4.2 mmol/L (3.5-5.1); Protein, Total 5.9 g/dL (6.0-8.3); Sodium 135 mmol/L (136-145); Triglycerides 123 mg/dL (Less than 150); Uric Acid 12.2 mg/dL (2.6-6.0)
[2017-09-03 06:47] LABS: Bilirubin Negative (Negative); Blood, Urine Moderate (Negative); Clarity Cloudy (Clear); Glucose, Urine (Dipstick) Negative (Negative); Leukocyte Large (Negative); Nitrite Positive (Negative); Protein, Urine (Dipstick) Negative (Neg-Trace); Urobilinogen 0.2 mg/dL (0.2-1.0); pH, Urine 5.5 (5.0-9.0)
[2017-09-03 06:55] LABS: Bacteria/HPF 2+ HPF (None Seen); Squamous Epithelial 0-3 HPF (0-3)
[2017-09-03] MEDS: Insulin Regular 300 UNITS/3 ML VIAL SC PRN ×2 (08:27→12:01)
[2017-09-03] MEDS: Fluticasone Propionate Nasal Spray 16 gm Bottle NASAL SCH ×2 (08:27→20:42)
[2017-09-03] MEDS: Docusate 100 MG CAP PO SCH ×2 (08:29→20:41)
[2017-09-03] MEDS: Aspirin 81 mg Enteric Coated Tablet PO SCH (08:29)
[2017-09-03] MEDS: glipiZIDE 5 MG TAB PO SCH ×3 (08:29→17:06)
[2017-09-03] MEDS: Furosemide 40 MG TAB PO SCH ×2 (08:29→13:39)
[2017-09-03] MEDS: Spironolactone 25 MG TAB PO SCH (08:29)
[2017-09-03] MEDS: Gabapentin 300 MG CAP PO SCH ×2 (08:29→20:41)
[2017-09-03] MEDS: Dronedarone HCl 400 MG TAB PO SCH ×2 (08:29→17:06)
[2017-09-03] MEDS: Potassium Chloride 20 MEQ TAB PO SCH (08:29)
[2017-09-03] MEDS: Carvedilol 3.125 MG TAB PO SCH ×2 (08:30→20:41)
[2017-09-03] MEDS: Apixaban 5 MG TAB PO SCH ×2 (08:30→20:41)
[2017-09-03] MEDS: metFORMIN 500 MG TAB PO SCH ×3 (08:30→17:07)
[2017-09-03] MEDS ORDERED: Nitrofurantoin Monohyd/M-Cryst 100 MG CAP PO SCH ×2 (12:39→13:30)
[2017-09-03] MEDS: Atorvastatin Calcium 10 MG TAB PO SCH (20:41)
[2017-09-03] MEDS: Nitrofurantoin Monohyd/M-Cryst 100 MG CAP PO SCH (20:41)
[2017-09-03] MEDS: diphenhydrAMINE 25 MG CAP PO SCH (20:42)
[2017-09-04 05:33] VITALS: BMI 26.0
[2017-09-04 07:55] VITALS: BP 115/58; TEMP 97.7
[2017-09-04] MEDS: Insulin Regular 300 UNITS/3 ML VIAL SC PRN ×2 (08:09→11:57)
[2017-09-04] MEDS: Fluticasone Propionate Nasal Spray 16 gm Bottle NASAL SCH (08:12)
[2017-09-04] MEDS: Nitrofurantoin Monohyd/M-Cryst 100 MG CAP PO SCH (08:13)
[2017-09-04] MEDS: Dronedarone HCl 400 MG TAB PO SCH (08:13)
[2017-09-04] MEDS: Aspirin 81 mg Enteric Coated Tablet PO SCH (08:13)
[2017-09-04] MEDS: Docusate 100 MG CAP PO SCH (08:13)
[2017-09-04] MEDS: metFORMIN 500 MG TAB PO SCH ×2 (08:14→12:01)
[2017-09-04] MEDS: glipiZIDE 5 MG TAB PO SCH ×2 (08:14→12:01)
[2017-09-04] MEDS: Spironolactone 25 MG TAB PO SCH (08:14)
[2017-09-04] MEDS: Apixaban 5 MG TAB PO SCH (08:14)
[2017-09-04] MEDS: Furosemide 40 MG TAB PO SCH (08:14)
[2017-09-04] MEDS: Gabapentin 300 MG CAP PO SCH (08:14)
[2017-09-04] MEDS: Carvedilol 3.125 MG TAB PO SCH (08:14)
[2017-09-04] MEDS: Potassium Chloride 20 MEQ TAB PO SCH (08:14)
--- NOTE | 2017-09-05 01:08 | DIS ---
DATE OF ADMISSION: 08/19/2017 DATE OF DISCHARGE: 09/04/2017 PRIMARY CARE PHYSICIAN: Sarthak Bustamante M.D. DISCHARGING PHYSICIAN: Stephen Funk M.D. FINAL DIAGNOSES: 1. Physical deconditioning, improved. 2. Left pleural effusion, almost resolved. 3. Acute on chronic diastolic valve heart failure, resolved. 4. Status post aortic valve replacement. 5. Newly diagnosed B cell lymphoma. 6. Type 2 diabetes. 7. Hypertension. 8. Atrial fibrillation, rate controlled. 9. Hypertension. 10. Hyperlipidemia. 11. Peripheral neuropathy. DISCHARGE MEDICATIONS: Eliquis 5 mg b.i.d., aspirin 81 daily, Lipitor 10 at bedtime, carvedilol 3.125 b.i.d., Multaq 400 b.i.d., spironolactone 50 daily, potassium chloride 20 daily, metformin/glipizide 1 tab 5/500 t.i.d., Lasix 40 b.i.d., gabapentin 300 b.i.d. Benadryl 25 mg at bedtime, Macrobid 100mg BID x 7 days. DISCHARGE INSTRUCTIONS: [facility] to resume nursing care, physical therapy and occupational therapy. Home health to encourage rolling walker at all times. Follow up with primary care physician, Dr. Bustamante in 1 week. Follow up with survey technician, Dr. Butt, in 2-3 weeks. BRIEF HOSPITAL COURSE: Ms. Pollack is a 76-year-old female who has had an extensive hospital admission since 06/2017 and was discharged back home initially on 08/02, but subsequently readmitted a week later due to a large left pleural effusion on 08/08 in [facility]. She was diuresed and improved but noted to be even more deconditioned. The patient was transferred to extended swing bed for physical therapy. During admission in [place], the patient progressed significantly. She was able to use a rolling walker to walk about 500 feet 2-3 times a day. During hospitalization, A1c was repeated and was 6.1. The patient's insulin was discontinued again. Patient's hospital course was not eventful. She progressed nicely with physical therapy. She denied any chest pain, shortness of breath, dizziness, palpitations. During hospitalization, she was noted to have some nosebleeds, but the patient states this is a nursing home issue with her and now that she is on Eliquis, she is little bit concerned. Patient was reassured and Flonase nasal spray was discontinued. The patient was educated on bleeding risk and bruising risk due to being on a new medication Eliquis. was also educated on this. A day prior to discharge she complained of urinary frequency and was noted to have a UTI. She was started on Macrobid and will adjust medication if needed once urine culture back. The patient was eventually discharged home in a stable condition with [facility] under the care of her . She is to follow up with her survey technician, Dr. Butt, in 2 weeks and follow up with her primary care doctor, Dr. Bustamante in 1 week. DISCHARGE VITAL SIGNS: Temperature 97.7, pulse 77, respirations 18, O2 of 96% on room air, blood pressure 115/58. The patient was discharged home in a stable condition. FRANCISCO
== END 2017-09-04 12:40 | disposition home health service (06) | DRG 291 ==
LOC: MADMS 15:58
PROVIDERS: ADMIT Family Medicine; ATTEND Family Medicine
DX: I11.0 Hypertensive heart disease with heart failure (principal); J96.01 Acute respiratory failure with hypoxia; C85.10 Unspecified B-cell lymphoma, unspecified site; J91.8 Pleural effusion in other conditions classified elsewhere; I50.33 Acute on chronic diastolic (congestive) heart failure; I48.91 Unspecified atrial fibrillation; E11.9 Type 2 diabetes mellitus without complications; Z95.2 Presence of prosthetic heart valve; R04.0 Epistaxis; I25.10 Atherosclerotic heart disease of native coronary artery without angina pectoris; E78.5 Hyperlipidemia, unspecified; K59.00 Constipation, unspecified; Z95.0 Presence of cardiac pacemaker; Z88.0 Allergy status to penicillin; Z88.2 Allergy status to sulfonamides
CPT/HCPCS: 36415; 36416; 71020; 80053; 80061; 81001; 82565; 83036; 84550; 85014; 85018; 85025; 85049; 85610; 85730; 87077; 87086; 87186; G8978-GP-CJ; G8979-GP-CI; J1815; Q0162

== ENCOUNTER 2017-11-22 13:48 | Outpatient (CLI) | payer MEDICARE ==
[2017-11-22 14:51] LABS: Bilirubin Negative (Negative); Blood, Urine Negative (Negative); Clarity Clear (Clear); Glucose, Urine (Dipstick) Negative (Negative); Leukocyte Negative (Negative); Nitrite Negative (Negative); Protein, Urine (Dipstick) Negative (Neg-Trace); Specific Gravity, Urine 1.015 (1.005-1.030); Urobilinogen 0.2 mg/dL (0.2-1.0)
[2017-11-22 15:24] LABS: Bacteria/HPF Rare-Few HPF (None Seen); RBC/HPF None Seen HPF (0-3); Squamous Epithelial 0-3 HPF (0-3); WBC/HPF 0-3 HPF (0-3)
== END 2017-11-22 13:49 | disposition home or self-care (01) ==
LOC: MADLAB 13:48
PROVIDERS: ATTEND Specialist
DX: I25.10 Atherosclerotic heart disease of native coronary artery without angina pectoris (principal); I11.0 Hypertensive heart disease with heart failure; I50.9 Heart failure, unspecified
CPT/HCPCS: 81001; 87086

== ENCOUNTER 2019-02-10 16:12 | Inpatient (IN) | payer MEDICARE ==
[2019-02-11] MEDS ORDERED: Zolpidem Tartrate 5 MG TAB PO PRN ×2 (01:15→10:46)
[2019-02-11] MEDS: Gabapentin 300 MG CAP PO SCH ×2 (08:56→20:40)
[2019-02-11] MEDS: Metolazone 5 MG TAB PO SCH (08:56)
[2019-02-11] MEDS: Lantus 1000 UNITS/10 ML VIAL SC SCH (08:56)
[2019-02-11] MEDS: metFORMIN 500 MG TAB PO SCH (08:56)
[2019-02-11] MEDS: Allopurinol 100 MG TAB PO SCH (08:57)
[2019-02-11] MEDS: Potassium Chloride 10 MEQ TAB PO SCH ×2 (08:57→17:09)
[2019-02-11] MEDS: Apixaban 5 MG TAB PO SCH ×2 (08:57→20:37)
[2019-02-11] MEDS: Torsemide 20 MG TAB PO SCH (08:57)
[2019-02-11] MEDS: Carvedilol 6.25 MG TAB PO SCH ×2 (08:58→20:39)
[2019-02-11] MEDS: Vit A,C & E/Lutein/Minerals Tablet PO SCH (08:58)
[2019-02-11] MEDS: Digoxin 0.125 MG TAB PO SCH (08:58)
[2019-02-11] MEDS: Folic Acid 1 MG TAB PO SCH (08:58)
[2019-02-11] MEDS: Acetaminophen 325 MG TAB PO PRN (09:03)
[2019-02-11] MEDS: Floranex Packet PO SCH (09:03)
[2019-02-11] MEDS ORDERED: Senokot S 8.6-50 MG TAB PO PRN (10:44)
[2019-02-11] MEDS ORDERED: Ondansetron ODT 4 MG TAB PO PRN (10:44)
[2019-02-11] MEDS ORDERED: Non-Formulary Item 1 EACH (Acetaminophen [Tylenol] 650 MG) PO PRN (10:46)
[2019-02-11 14:11] LABS: #Basophils 0.1 thou/uL (0.0-0.2); #Eosinphils 0.3 thou/uL (0.0-0.7); #Lymphocytes 1.3 thou/uL (1.20-3.40); #Monocytes 0.9 thou/uL (0.11-0.59); #Neutrophils 8.6 thou/uL (1.40-6.50); %Basophils 0.9 % (0.0-1.0); %Eosinophils 2.4 % (0.0-10.0); %Lymphocytes 11.9 % (21.0-51.0); %Monocytes 8.2 % (0.0-10.0); %Neutrophils 76.6 % (42.0-75.0); Hemoglobin 11.4 g/dL (12.0-16.0); Mean Corpuscular HGB CONC 32.8 g/dL (32.0-36.0); Mean Corpuscular Hemoglobin 29.3 pg (27.0-31.0); Mean Corpuscular Volume 89.5 fL (78.0-98.0); Mean Platelet Volume 7.7 fL (7.4-10.4); Platelet Count 237 thou/uL (130-400); RBC Distribution Width 13.7 % (11.5-14.5); Red Blood Cell (RBC) Count 3.87 mill/uL (4.20-5.40); White Blood Cell (WBC) Count 11.2 thou/uL (4.8-10.8)
[2019-02-11 14:14] LABS: ALT (SGPT) 12 U/L (8-55); AST (SGOT) 22 U/L (5-34); Albumin 3.5 g/dL (3.4-4.8); Alkaline Phosphatase 82 U/L (40-150); Anion Gap 17 mmol/L (10-20); BUN (Urea Nitrogen) 35 mg/dL (9.8-20.1); Bilirubin, Total 0.8 mg/dL (0.2-1.2); Calc. Creatinine Clearance 50 mL/min (70-130); Calcium 7.9 mg/dL (7.8-10.44); Carbon Dioxide 30 mmol/L (23-31); Chloride 95 mmol/L (98-107); Estimated GFR-MDRD 55; Globulin 2.7 g/dL (2.4-3.5); Glucose 95 mg/dL (83-110); Potassium 3.1 mmol/L (3.5-5.1); Protein, Total 6.2 g/dL (6.0-8.3); Sodium 139 mmol/L (136-145)
[2019-02-11] MEDS: Atorvastatin Calcium 10 MG TAB PO SCH (20:39)
[2019-02-11] MEDS: Melatonin 3 MG TAB PO SCH (20:40)
[2019-02-11] MEDS ORDERED: Atorvastatin Calcium 10 MG TAB PO SCH (21:00)
[2019-02-11] MEDS ORDERED: Gabapentin 300 MG CAP PO SCH (21:00)
[2019-02-11] MEDS ORDERED: Carvedilol 3.125 MG TAB PO SCH (21:00)
[2019-02-11] MEDS ORDERED: Non-Formulary Item 1 EACH (Apixaban [Eliquis] 2.5 MG) PO SCH (21:00)
[2019-02-11] MEDS ORDERED: Melatonin 3 MG TAB PO SCH (21:00)
[2019-02-11] MEDS ORDERED: Potassium Chloride 10 MEQ TAB PO SCH (21:00)
--- NOTE | 2019-02-11 23:24 | HP ---
PRIMARY CARE PHYSICIAN: Dr. Sarthak Bustamante. REASON FOR ADMISSION: For skilled rehabilitation at [facility] secondary to physical debility due to recent acute cystitis. HISTORY OF PRESENT ILLNESS: Ms. Pollack is a 78-year-old female with a medical history of disatolic congestive heart failure, coronary artery disease, heart valve replacement, asthma, and type 2 diabetes with lymphoma in remission. The patient presented to the emergency room on the 30 of January with due to multiple episodes of falls. states the patient hit the head on the bedside board , but did not have any loss of consciousness. The patient had been falling per probably a dozen times in the last couple of weeks prior to presentation to the emergency room. He also noted some confusion, decreased appetite, and weakness. The patient was subsequently admitted for weakness and urinary tract infection noted in the emergency room. She was treated with IV antibiotics. She had a CT of the head, CT of the neck, CT of the lumbar spine with no acute findings. The patient was also evaluated by [employer] tube bender due to a history of congestive heart failure and he was recommended for the patient to continue medical management and no repeat echocardiogram as an outpatient. The patient was diuresed in the hospital due to mild acute on chronic CHF noted and she improved significantly. The patient's progress improved and on the , she doing physical therapy, she complained of foot pain. X-ray was done and that was found to be negative. The patient's uric acid was also done and noted to be elevated at 10. The patient was started on prednisone and this significantly improved her condition. Due to the prednisone, the glucose was elevated and the patient was started on Lantus 30 units. These have been controlling the patient's blood sugar here in the hospital. Due to multiple falls, recent UTI, and acute on chronic CHF, the decision was made to transfer the patient to [facility] for continuation of physical therapy prior to discharge back to home. The patient upon evaluation was noted to be moderately deconditioned and she could only ambulate with a 4-wheeled rolling walker about 60 feet and needed to sit down a couple of times due to weakness. Per , the patient is not back to baseline mentally and still has some confusion. PAST MEDICAL HISTORY: Hypertension, type 2 diabetes, GERD, coronary artery disease; B-cell lymphoma, in remission; congestive heart failure, COPD. PAST SURGICAL HISTORY: Heart valve replacement, coronary artery bypass graft, carpal tunnel surgery bilaterally, hysterectomy, and a chemo port in the chest. PSYCHIATRIC HISTORY: Negative. SOCIAL HISTORY: Denies alcohol or illicit drug use. No tobacco history. Lives at home with her . ALLERGIES: PENICILLINS AND SULFA. CURRENT MEDICATIONS: 1. Eliquis 2.5 b.i.d. 2. Allopurinol 300 daily. 4. Lipitor 10 mg at bedtime. 5. Coreg 6.25 b.i.d. 6. Digoxin 0.125 mg daily. 7. Folic acid one p.o. daily. 8. Gabapentin 300 mg b.i.d. 9. Lantus 30 subcu daily. 10. Melatonin 6 mg at bedtime. 11. Metformin 1000 daily. 12. Metolazone 5 mg daily. 13. Protonix 40 daily. 14. Potassium chloride 20 mEq b.i.d. 15. Torsemide 20 daily. REVIEW OF SYSTEMS: GENERAL: Significant for fatigue, multiple falls as previously mentioned, and general malaise. HEENT: Denies any blood in ears, nose, or throat. CHEST: Denies any chest pain, shortness of breath, palpitations or dizziness. RESPIRATORY: Denies any cough or wheezing. ABDOMEN: Denies any abdominal pain, nausea, vomiting, or diarrhea. GENITOURINARY: Denies dysuria or hematuria. SKIN: Complains of multiple bruises from falls and IV sticks. NEUROLOGICAL: No focal deficits. PSYCHIATRY: No anxiety or depression. Per , the patient is somewhat confused and now back at her baseline. PHYSICAL EXAMINATION: VITAL SIGNS: Temperature 96.9, pulse 77, respirations 18, O2 sats 100% on 2 L nasal cannula, BP 118/58. GENERAL: The patient is alert, awake, oriented x3. Well-developed, acutely ill , elderly female, cooperative. HEENT: Bruising to mid forehead with no hematoma, but purplish blue discoloration. Pupils are equal, round, reactive to light bilaterally. TMs, nares are clear. NECK: Supple. Trachea midline. No bruits. CHEST: Clear to auscultation bilaterally. HEART: Regular rate and rhythm systolic ejection murmur. ABDOMEN: Positive bowel sounds. Soft, nontender, nondistended. EXTREMITIES: Muscular wasting to bilateral extremities. No swelling. No edema. NEUROLOGICAL: Cranial nerves 2 through 12 grossly intact. Mental status showing slowed mentation, but still able to answer questions. ASSESSMENT: 1. Physical debility. 2. Multiple falls. 3. Diabetes type 2. 4. Urinary tract infection, resolved. 5. Congestive heart failure history. 6. Diabetes type 2. 7. Multiple falls. PLAN: The patient has been admitted to [facility] for skilled rehabilitation and gait strengthening. We will consult Physical Therapy for strengthening in order to gain modified independence with gait. We will consult Occupational Therapy to help with activities of daily living prior to returning to her home. The patient is to follow up with [employer] tube bender as an outpatient. We will resume all the home medications. We will continue the patient on Lantus dose and monitor closely. We will most likely discontinue the prednisone. We will place the patient on GI prophylaxis with Protonix and Eliquis for DVT prophylaxis. ESTIMATED LENGTH OF STAY: 3-4 weeks. DISPOSITION: Home. CODE STATUS: Full code. Job ID: [id number] MTDD
[2019-02-12 01:21] LABS: Bilirubin Negative (Negative); Blood, Urine Negative (Negative); Clarity Clear (Clear); Glucose, Urine (Dipstick) Negative (Negative); Leukocyte Small (Negative); Nitrite Negative (Negative); Protein, Urine (Dipstick) Negative (Neg-Trace); Urobilinogen 0.2 mg/dL (0.2-1.0)
[2019-02-12 01:25] LABS: Bacteria/HPF 1+ HPF (None Seen); RBC/HPF 0-3 HPF (0-3); Renal Epithelial 0-3 HPF (0-3); Urine Culture Reflex No No
[2019-02-12] MEDS: Metolazone 5 MG TAB PO SCH (08:22)
[2019-02-12] MEDS: Floranex Packet PO SCH (08:22)
[2019-02-12] MEDS: Potassium Chloride 10 MEQ TAB PO SCH ×2 (08:23→17:00)
[2019-02-12] MEDS: Allopurinol 100 MG TAB PO SCH (08:23)
[2019-02-12] MEDS: Acetaminophen 325 MG TAB PO PRN (08:23)
[2019-02-12] MEDS: Torsemide 20 MG TAB PO SCH (08:24)
[2019-02-12] MEDS: Vit A,C & E/Lutein/Minerals Tablet PO SCH (08:24)
[2019-02-12] MEDS: metFORMIN 500 MG TAB PO SCH (08:24)
[2019-02-12] MEDS: Gabapentin 300 MG CAP PO SCH ×2 (08:25→21:20)
[2019-02-12] MEDS: Lantus 1000 UNITS/10 ML VIAL SC SCH (08:25)
[2019-02-12] MEDS: Carvedilol 6.25 MG TAB PO SCH ×2 (08:25→21:20)
[2019-02-12] MEDS: Apixaban 5 MG TAB PO SCH ×2 (08:25→21:21)
[2019-02-12] MEDS: Digoxin 0.125 MG TAB PO SCH (08:25)
[2019-02-12] MEDS: Folic Acid 1 MG TAB PO SCH (08:26)
[2019-02-12] MEDS ORDERED: Non-Formulary Item 1 EACH (Metformin Hcl [Metformin Hcl] 1,000 MG) PO SCH (09:00)
[2019-02-12] MEDS ORDERED: Metolazone 5 MG TAB PO SCH (09:00)
[2019-02-12] MEDS ORDERED: LACTOBACILLUS COMBINATION NO 4 PO SCH (09:00)
[2019-02-12] MEDS ORDERED: ALLOPURINOL 300 MG PO SCH (09:00)
[2019-02-12] MEDS ORDERED: Digoxin 0.125 MG TAB PO SCH (09:00)
[2019-02-12] MEDS ORDERED: Torsemide 20 MG TAB PO SCH (09:00)
[2019-02-12] MEDS ORDERED: Non-Formulary Item 1 EACH (C,E,Zinc,Copper 24/Om3/Lut/Zea [Ocuvite Adult 50 Plus Softgel] PO SCH (09:00)
[2019-02-12] MEDS ORDERED: Non-Formulary Item 1 EACH (Folic Acid [Folic Acid] 0.8 MG) PO SCH (09:00)
[2019-02-12] MEDS ORDERED: Ciprofloxacin 500 MG TAB PO SCH (10:15)
[2019-02-12] MEDS: Ciprofloxacin 500 MG TAB PO SCH (21:19)
[2019-02-12] MEDS: Melatonin 3 MG TAB PO SCH (21:20)
[2019-02-12] MEDS: Atorvastatin Calcium 10 MG TAB PO SCH (21:20)
[2019-02-13] MEDS: Ciprofloxacin 500 MG TAB PO SCH ×2 (05:44→20:41)
[2019-02-13] MEDS: Floranex Packet PO SCH (09:09)
[2019-02-13] MEDS: Potassium Chloride 10 MEQ TAB PO SCH ×2 (09:09→17:13)
[2019-02-13] MEDS: Folic Acid 1 MG TAB PO SCH (09:09)
[2019-02-13] MEDS: metFORMIN 500 MG TAB PO SCH (09:09)
[2019-02-13] MEDS: Metolazone 5 MG TAB PO SCH (09:09)
[2019-02-13] MEDS: Digoxin 0.125 MG TAB PO SCH (09:10)
[2019-02-13] MEDS: Gabapentin 300 MG CAP PO SCH ×2 (09:10→20:43)
[2019-02-13] MEDS: Carvedilol 6.25 MG TAB PO SCH ×2 (09:10→20:43)
[2019-02-13] MEDS: Torsemide 20 MG TAB PO SCH (09:10)
[2019-02-13] MEDS: Apixaban 5 MG TAB PO SCH ×2 (09:10→20:41)
[2019-02-13] MEDS: Allopurinol 100 MG TAB PO SCH (09:10)
[2019-02-13] MEDS: Vit A,C & E/Lutein/Minerals Tablet PO SCH (09:10)
[2019-02-13] MEDS: Lantus 1000 UNITS/10 ML VIAL SC SCH (09:11)
[2019-02-13] MEDS: Atorvastatin Calcium 10 MG TAB PO SCH (20:42)
[2019-02-13] MEDS: Melatonin 3 MG TAB PO SCH (20:43)
[2019-02-14] MEDS: Ciprofloxacin 500 MG TAB PO SCH ×2 (05:52→21:31)
[2019-02-14] MEDS: Floranex Packet PO SCH (08:35)
[2019-02-14] MEDS: Vit A,C & E/Lutein/Minerals Tablet PO SCH (08:36)
[2019-02-14] MEDS: Metolazone 5 MG TAB PO SCH (08:36)
[2019-02-14] MEDS: Allopurinol 100 MG TAB PO SCH (08:36)
[2019-02-14] MEDS: metFORMIN 500 MG TAB PO SCH (08:36)
[2019-02-14] MEDS: Folic Acid 1 MG TAB PO SCH (08:36)
[2019-02-14] MEDS: Torsemide 20 MG TAB PO SCH (08:37)
[2019-02-14] MEDS: Gabapentin 300 MG CAP PO SCH ×2 (08:37→21:33)
[2019-02-14] MEDS: Potassium Chloride 10 MEQ TAB PO SCH ×2 (08:37→17:06)
[2019-02-14] MEDS: Apixaban 5 MG TAB PO SCH ×2 (08:37→21:31)
[2019-02-14] MEDS: Digoxin 0.125 MG TAB PO SCH (08:38)
[2019-02-14] MEDS: Carvedilol 6.25 MG TAB PO SCH ×2 (08:38→21:32)
[2019-02-14] MEDS: Lantus 1000 UNITS/10 ML VIAL SC SCH (08:38)
[2019-02-14] MEDS: Atorvastatin Calcium 10 MG TAB PO SCH (21:32)
[2019-02-14] MEDS: Melatonin 3 MG TAB PO SCH (21:33)
[2019-02-15] MEDS: Ciprofloxacin 500 MG TAB PO SCH ×2 (05:34→19:59)
[2019-02-15] MEDS ORDERED: Lantiseptic Ointment 130 GM JAR TOP PRN (06:45)
[2019-02-15] MEDS: Lantiseptic Ointment 130 GM JAR TOP SCH ×2 (08:57→19:59)
[2019-02-15] MEDS: Lantus 1000 UNITS/10 ML VIAL SC SCH (08:57)
[2019-02-15] MEDS: Potassium Chloride 10 MEQ TAB PO SCH ×2 (08:58→17:13)
[2019-02-15] MEDS: Floranex Packet PO SCH (08:58)
[2019-02-15] MEDS: Allopurinol 100 MG TAB PO SCH (08:58)
[2019-02-15] MEDS: Carvedilol 6.25 MG TAB PO SCH ×2 (08:59→20:45)
[2019-02-15] MEDS: Vit A,C & E/Lutein/Minerals Tablet PO SCH (08:59)
[2019-02-15] MEDS: Metolazone 5 MG TAB PO SCH (08:59)
[2019-02-15] MEDS: Gabapentin 300 MG CAP PO SCH ×2 (08:59→20:46)
[2019-02-15] MEDS: metFORMIN 500 MG TAB PO SCH (08:59)
[2019-02-15] MEDS: Folic Acid 1 MG TAB PO SCH (08:59)
[2019-02-15] MEDS: Digoxin 0.125 MG TAB PO SCH (08:59)
[2019-02-15] MEDS: Apixaban 5 MG TAB PO SCH ×2 (09:00→20:46)
[2019-02-15] MEDS: Torsemide 20 MG TAB PO SCH (09:01)
[2019-02-15] MEDS: Furosemide 40 MG TAB PO SCH (11:05)
[2019-02-15] MEDS: Melatonin 3 MG TAB PO SCH (20:45)
[2019-02-15] MEDS: Atorvastatin Calcium 10 MG TAB PO SCH (20:47)
[2019-02-16] MEDS: Ciprofloxacin 500 MG TAB PO SCH (06:04)
[2019-02-16] MEDS: Carvedilol 6.25 MG TAB PO SCH ×2 (08:49→20:40)
[2019-02-16] MEDS: Furosemide 40 MG TAB PO SCH (08:49)
[2019-02-16] MEDS: metFORMIN 500 MG TAB PO SCH (08:49)
[2019-02-16] MEDS: Allopurinol 100 MG TAB PO SCH (08:50)
[2019-02-16] MEDS: Metolazone 5 MG TAB PO SCH (08:50)
[2019-02-16] MEDS: Vit A,C & E/Lutein/Minerals Tablet PO SCH (08:50)
[2019-02-16] MEDS: Folic Acid 1 MG TAB PO SCH (08:50)
[2019-02-16] MEDS: Apixaban 5 MG TAB PO SCH ×2 (08:50→20:40)
[2019-02-16] MEDS: Digoxin 0.125 MG TAB PO SCH (08:51)
[2019-02-16] MEDS: Lantus 1000 UNITS/10 ML VIAL SC SCH (08:51)
[2019-02-16] MEDS: Torsemide 20 MG TAB PO SCH (08:51)
[2019-02-16] MEDS: Gabapentin 300 MG CAP PO SCH ×2 (08:51→20:40)
[2019-02-16] MEDS: Floranex Packet PO SCH (08:51)
[2019-02-16] MEDS: Potassium Chloride 10 MEQ TAB PO SCH ×2 (08:51→17:14)
[2019-02-16] MEDS: Lantiseptic Ointment 130 GM JAR TOP SCH ×2 (08:52→20:45)
[2019-02-16] MEDS: Acetaminophen 325 MG TAB PO PRN ×2 (11:52→20:45)
[2019-02-16 14:11] LABS: Hemoglobin 11.2 g/dL (12.0-16.0); Lymphocytes 5 % (21-51); MDiff Complete? YES; Mean Corpuscular HGB CONC 32.1 g/dL (32.0-36.0); Mean Corpuscular Hemoglobin 29.1 pg (27.0-31.0); Mean Corpuscular Volume 90.9 fL (78.0-98.0); Mean Platelet Volume 7.7 fL (7.4-10.4); Monocytes 4 % (0-10); Neutrophil 86 % (42-75); Platelet Count 253 thou/uL (130-400); Platelet Morphology Comment Appears Adequate; RBC Distribution Width 14.3 % (11.5-14.5); Reactive Lymphocytes 5 % (0-10); Red Blood Cell (RBC) Count 3.85 mill/uL (4.20-5.40)
[2019-02-16] MEDS ORDERED: Furosemide 40 MG/4 ML VIAL ONE (14:20)
[2019-02-16] MEDS ORDERED: Furosemide 40 MG/4 ML VIAL SLOW IVP SCH (14:45)
[2019-02-16] MEDS: Melatonin 3 MG TAB PO SCH (20:40)
[2019-02-16] MEDS: Atorvastatin Calcium 10 MG TAB PO SCH (20:41)
[2019-02-16] MEDS: Zolpidem Tartrate 5 MG TAB PO SCH (20:47)
[2019-02-17] MEDS: Potassium Chloride 10 MEQ TAB PO SCH ×2 (08:17→16:53)
[2019-02-17] MEDS: metFORMIN 500 MG TAB PO SCH (08:17)
[2019-02-17] MEDS: Floranex Packet PO SCH (08:18)
[2019-02-17] MEDS: Allopurinol 100 MG TAB PO SCH (08:18)
[2019-02-17] MEDS: Metolazone 5 MG TAB PO SCH (08:18)
[2019-02-17] MEDS: Digoxin 0.125 MG TAB PO SCH (08:19)
[2019-02-17] MEDS: Apixaban 5 MG TAB PO SCH ×2 (08:19→21:46)
[2019-02-17] MEDS: Carvedilol 6.25 MG TAB PO SCH ×2 (08:19→21:47)
[2019-02-17] MEDS: Gabapentin 300 MG CAP PO SCH ×2 (08:20→21:47)
[2019-02-17] MEDS: Folic Acid 1 MG TAB PO SCH (08:20)
[2019-02-17] MEDS: Lantus 1000 UNITS/10 ML VIAL SC SCH (08:20)
[2019-02-17] MEDS: Torsemide 20 MG TAB PO SCH (08:21)
[2019-02-17] MEDS: Vit A,C & E/Lutein/Minerals Tablet PO SCH (08:21)
[2019-02-17] MEDS: Lantiseptic Ointment 130 GM JAR TOP SCH ×2 (08:26→21:50)
[2019-02-17] MEDS ORDERED: Furosemide 40 MG/4 ML VIAL SLOW IVP SCH (09:00)
[2019-02-17] MEDS: Furosemide 40 MG/4 ML VIAL SLOW IVP SCH (14:08)
[2019-02-17] MEDS: Atorvastatin Calcium 10 MG TAB PO SCH (21:47)
[2019-02-17] MEDS: Melatonin 3 MG TAB PO SCH (21:48)
[2019-02-17] MEDS: Zolpidem Tartrate 5 MG TAB PO SCH (21:48)
[2019-02-18] MEDS: Furosemide 40 MG/4 ML VIAL SLOW IVP SCH ×2 (05:46→14:32)
[2019-02-18] MEDS: Apixaban 5 MG TAB PO SCH ×2 (08:27→21:09)
[2019-02-18] MEDS: metFORMIN 500 MG TAB PO SCH (08:27)
[2019-02-18] MEDS: Vit A,C & E/Lutein/Minerals Tablet PO SCH (08:27)
[2019-02-18] MEDS: Allopurinol 100 MG TAB PO SCH (08:27)
[2019-02-18] MEDS: Potassium Chloride 10 MEQ TAB PO SCH ×2 (08:27→17:03)
[2019-02-18] MEDS: Torsemide 20 MG TAB PO SCH (08:27)
[2019-02-18] MEDS: Metolazone 5 MG TAB PO SCH (08:27)
[2019-02-18] MEDS: Floranex Packet PO SCH (08:27)
[2019-02-18] MEDS: Gabapentin 300 MG CAP PO SCH ×2 (08:28→21:10)
[2019-02-18] MEDS: Digoxin 0.125 MG TAB PO SCH (08:28)
[2019-02-18] MEDS: Folic Acid 1 MG TAB PO SCH (08:28)
[2019-02-18] MEDS: Carvedilol 6.25 MG TAB PO SCH ×2 (08:28→21:10)
[2019-02-18] MEDS: Lantiseptic Ointment 130 GM JAR TOP SCH ×2 (08:29→21:12)
[2019-02-18] MEDS: Lantus 1000 UNITS/10 ML VIAL SC SCH (08:29)
[2019-02-18] MEDS: Atorvastatin Calcium 10 MG TAB PO SCH (21:09)
[2019-02-18] MEDS: Melatonin 3 MG TAB PO SCH (21:10)
[2019-02-18] MEDS: Zolpidem Tartrate 5 MG TAB PO SCH (21:10)
[2019-02-19] MEDS: Furosemide 40 MG/4 ML VIAL SLOW IVP SCH ×2 (06:02→13:50)
[2019-02-19] MEDS: Gabapentin 300 MG CAP PO SCH ×2 (08:17→20:56)
[2019-02-19] MEDS: Apixaban 5 MG TAB PO SCH ×2 (08:17→20:55)
[2019-02-19] MEDS: metFORMIN 500 MG TAB PO SCH (08:17)
[2019-02-19] MEDS: Floranex Packet PO SCH (08:17)
[2019-02-19] MEDS: Potassium Chloride 10 MEQ TAB PO SCH ×2 (08:17→16:58)
[2019-02-19] MEDS: Lantus 1000 UNITS/10 ML VIAL SC SCH (08:17)
[2019-02-19] MEDS: Allopurinol 100 MG TAB PO SCH (08:18)
[2019-02-19] MEDS: Digoxin 0.125 MG TAB PO SCH (08:18)
[2019-02-19] MEDS: Folic Acid 1 MG TAB PO SCH (08:18)
[2019-02-19] MEDS: Torsemide 20 MG TAB PO SCH (08:18)
[2019-02-19] MEDS: Metolazone 5 MG TAB PO SCH (08:19)
[2019-02-19] MEDS: Vit A,C & E/Lutein/Minerals Tablet PO SCH (08:19)
[2019-02-19] MEDS: Lantiseptic Ointment 130 GM JAR TOP SCH ×2 (08:19→20:54)
[2019-02-19] MEDS: Carvedilol 6.25 MG TAB PO SCH ×2 (08:19→20:56)
[2019-02-19] MEDS ORDERED: Nystatin Powder 15 GM BOT TOP PRN (10:28)
[2019-02-19 10:56] LABS: Bilirubin Negative (Negative); Blood, Urine Trace (Negative); Glucose, Urine (Dipstick) Negative (Negative); Leukocyte Negative (Negative); Nitrite Negative (Negative); Protein, Urine (Dipstick) Negative (Neg-Trace); Urobilinogen 0.2 mg/dL (0.2-1.0); pH, Urine 6.5 (5.0-9.0)
[2019-02-19 11:06] LABS: Clarity Hazy (Clear); Urine Culture Reflex No No
[2019-02-19 11:07] LABS: Bacteria/HPF 1+ HPF (None Seen); RBC/HPF 0-3 HPF (0-3); WBC/HPF 0-3 HPF (0-3)
[2019-02-19] MEDS: Atorvastatin Calcium 10 MG TAB PO SCH (20:55)
[2019-02-19] MEDS: Melatonin 3 MG TAB PO SCH (20:56)
[2019-02-19] MEDS: Nystatin Powder 15 GM BOT TOP SCH (20:57)
[2019-02-19] MEDS: Zolpidem Tartrate 5 MG TAB PO SCH (20:58)
[2019-02-20] MEDS: Furosemide 40 MG/4 ML VIAL SLOW IVP SCH ×2 (05:22→14:03)
[2019-02-20] MEDS: Floranex Packet PO SCH (08:28)
[2019-02-20] MEDS: Allopurinol 100 MG TAB PO SCH (08:29)
[2019-02-20] MEDS: Potassium Chloride 10 MEQ TAB PO SCH ×2 (08:29→16:45)
[2019-02-20] MEDS: metFORMIN 500 MG TAB PO SCH (08:29)
[2019-02-20] MEDS: Metolazone 5 MG TAB PO SCH (08:29)
[2019-02-20] MEDS: Vit A,C & E/Lutein/Minerals Tablet PO SCH (08:30)
[2019-02-20] MEDS: Digoxin 0.125 MG TAB PO SCH (08:30)
[2019-02-20] MEDS: Carvedilol 6.25 MG TAB PO SCH ×2 (08:30→21:12)
[2019-02-20] MEDS: Gabapentin 300 MG CAP PO SCH ×2 (08:30→21:11)
[2019-02-20] MEDS: Apixaban 5 MG TAB PO SCH ×2 (08:30→21:12)
[2019-02-20] MEDS: Folic Acid 1 MG TAB PO SCH (08:31)
[2019-02-20] MEDS: Lantus 1000 UNITS/10 ML VIAL SC SCH (08:31)
[2019-02-20] MEDS: Torsemide 20 MG TAB PO SCH (08:31)
[2019-02-20] MEDS: Nystatin Powder 15 GM BOT TOP SCH ×2 (08:34→21:12)
[2019-02-20] MEDS: Lantiseptic Ointment 130 GM JAR TOP SCH ×2 (08:34→21:12)
[2019-02-20] MEDS: Zolpidem Tartrate 5 MG TAB PO SCH (21:11)
[2019-02-20] MEDS: Melatonin 3 MG TAB PO SCH (21:11)
[2019-02-20] MEDS: Atorvastatin Calcium 10 MG TAB PO SCH (21:12)
[2019-02-21] MEDS: Floranex Packet PO SCH (08:29)
[2019-02-21] MEDS: Allopurinol 100 MG TAB PO SCH (08:30)
[2019-02-21] MEDS: Potassium Chloride 10 MEQ TAB PO SCH ×2 (08:30→16:57)
[2019-02-21] MEDS: Torsemide 20 MG TAB PO SCH (08:30)
[2019-02-21] MEDS: Digoxin 0.125 MG TAB PO SCH (08:30)
[2019-02-21] MEDS: Metolazone 5 MG TAB PO SCH (08:31)
[2019-02-21] MEDS: Carvedilol 6.25 MG TAB PO SCH ×2 (08:31→20:32)
[2019-02-21] MEDS: Vit A,C & E/Lutein/Minerals Tablet PO SCH (08:31)
[2019-02-21] MEDS: Folic Acid 1 MG TAB PO SCH (08:31)
[2019-02-21] MEDS: Apixaban 5 MG TAB PO SCH ×2 (08:31→20:32)
[2019-02-21] MEDS: metFORMIN 500 MG TAB PO SCH (08:31)
[2019-02-21] MEDS: Gabapentin 300 MG CAP PO SCH ×2 (08:31→20:32)
[2019-02-21] MEDS: Lantiseptic Ointment 130 GM JAR TOP SCH ×2 (08:32→20:33)
[2019-02-21] MEDS: Nystatin Powder 15 GM BOT TOP SCH ×2 (08:32→20:31)
[2019-02-21] MEDS: Lantus 1000 UNITS/10 ML VIAL SC SCH (08:38)
[2019-02-21] MEDS: Zolpidem Tartrate 5 MG TAB PO SCH (20:31)
[2019-02-21] MEDS: Melatonin 3 MG TAB PO SCH (20:32)
[2019-02-21] MEDS: Atorvastatin Calcium 10 MG TAB PO SCH (20:32)
[2019-02-22] MEDS: Digoxin 0.125 MG TAB PO SCH (08:31)
[2019-02-22] MEDS: Folic Acid 1 MG TAB PO SCH (08:31)
[2019-02-22] MEDS: Gabapentin 300 MG CAP PO SCH ×2 (08:31→20:15)
[2019-02-22] MEDS: metFORMIN 500 MG TAB PO SCH (08:31)
[2019-02-22] MEDS: Potassium Chloride 10 MEQ TAB PO SCH ×2 (08:31→17:06)
[2019-02-22] MEDS: Metolazone 5 MG TAB PO SCH (08:31)
[2019-02-22] MEDS: Vit A,C & E/Lutein/Minerals Tablet PO SCH (08:31)
[2019-02-22] MEDS: Carvedilol 6.25 MG TAB PO SCH ×2 (08:32→20:15)
[2019-02-22] MEDS: Torsemide 20 MG TAB PO SCH (08:32)
[2019-02-22] MEDS: Allopurinol 100 MG TAB PO SCH (08:32)
[2019-02-22] MEDS: Floranex Packet PO SCH (08:33)
[2019-02-22] MEDS: Apixaban 5 MG TAB PO SCH ×2 (08:34→20:15)
[2019-02-22] MEDS: Lantus 1000 UNITS/10 ML VIAL SC SCH (08:35)
[2019-02-22] MEDS: Nystatin Powder 15 GM BOT TOP SCH ×2 (08:36→20:16)
[2019-02-22] MEDS: Lantiseptic Ointment 130 GM JAR TOP SCH ×2 (08:36→20:16)
[2019-02-22] MEDS: Acetaminophen 325 MG TAB PO PRN (14:17)
[2019-02-22 16:59] VITALS: BMI 27.3
[2019-02-22] MEDS: Zolpidem Tartrate 5 MG TAB PO SCH (20:14)
[2019-02-22] MEDS: Atorvastatin Calcium 10 MG TAB PO SCH (20:15)
[2019-02-22] MEDS: Melatonin 3 MG TAB PO SCH (20:15)
[2019-02-23] MEDS: Vit A,C & E/Lutein/Minerals Tablet PO SCH (08:48)
[2019-02-23] MEDS: Floranex Packet PO SCH (08:48)
[2019-02-23] MEDS: Potassium Chloride 10 MEQ TAB PO SCH ×2 (08:48→17:02)
[2019-02-23] MEDS: Metolazone 5 MG TAB PO SCH (08:48)
[2019-02-23] MEDS: Allopurinol 100 MG TAB PO SCH (08:49)
[2019-02-23] MEDS: Folic Acid 1 MG TAB PO SCH (08:49)
[2019-02-23] MEDS: metFORMIN 500 MG TAB PO SCH (08:49)
[2019-02-23] MEDS: Gabapentin 300 MG CAP PO SCH ×2 (08:49→20:07)
[2019-02-23] MEDS: Torsemide 20 MG TAB PO SCH (08:50)
[2019-02-23] MEDS: Carvedilol 6.25 MG TAB PO SCH ×2 (08:50→20:07)
[2019-02-23] MEDS: Digoxin 0.125 MG TAB PO SCH (08:50)
[2019-02-23] MEDS: Apixaban 5 MG TAB PO SCH ×2 (08:50→20:06)
[2019-02-23] MEDS: Nystatin Powder 15 GM BOT TOP SCH ×2 (08:51→20:06)
[2019-02-23] MEDS: Lantiseptic Ointment 130 GM JAR TOP SCH ×2 (08:51→20:05)
[2019-02-23] MEDS: Lantus 1000 UNITS/10 ML VIAL SC SCH (08:52)
[2019-02-23 12:59] LABS: ALT (SGPT) 11 U/L (8-55); AST (SGOT) 22 U/L (5-34); Albumin 3.7 g/dL (3.4-4.8); Alkaline Phosphatase 87 U/L (40-150); Anion Gap 16 mmol/L (10-20); BUN (Urea Nitrogen) 39 mg/dL (9.8-20.1); Bilirubin, Total 0.9 mg/dL (0.2-1.2); Calc. Creatinine Clearance 51 mL/min (70-130); Calcium 9.1 mg/dL (7.8-10.44); Carbon Dioxide 27 mmol/L (23-31); Chloride 100 mmol/L (98-107); Estimated GFR-MDRD 52; Globulin 2.7 g/dL (2.4-3.5); Glucose 152 mg/dL (83-110); Potassium 3.4 mmol/L (3.5-5.1); Protein, Total 6.4 g/dL (6.0-8.3); Sodium 140 mmol/L (136-145)
[2019-02-23 13:08] LABS: Anisocytosis SLIGHT = 6-15 cells (100X) (0-5/hpf); Band 2 % (5-11); Eosinophils 2 % (0-10); Hemoglobin 10.7 g/dL (12.0-16.0); Lymphocytes 18 % (21-51); MDiff Complete? YES; Mean Corpuscular Volume 90.7 fL (78.0-98.0); Mean Platelet Volume 6.8 fL (7.4-10.4); Monocytes 7 % (0-10); Neutrophil 71 % (42-75); Platelet Count 247 thou/uL (130-400); Platelet Morphology Comment Appears Adequate; RBC Distribution Width 14.9 % (11.5-14.5); Red Blood Cell (RBC) Count 3.69 mill/uL (4.20-5.40); White Blood Cell (WBC) Count 8.3 thou/uL (4.8-10.8)
[2019-02-23 15:56] LABS: Bilirubin Negative (Negative); Blood, Urine Negative (Negative); Clarity Clear (Clear); Glucose, Urine (Dipstick) Negative (Negative); Leukocyte Negative (Negative); Nitrite Negative (Negative); Protein, Urine (Dipstick) Negative (Neg-Trace); Urobilinogen 0.2 mg/dL (0.2-1.0)
[2019-02-23 16:05] LABS: Urine Culture Reflex No No
[2019-02-23 16:12] LABS: Bacteria/HPF Rare-Few HPF (None Seen); RBC/HPF 0-3 HPF (0-3); Squamous Epithelial 0-3 HPF (0-3); WBC/HPF 0-3 HPF (0-3)
[2019-02-23] MEDS: Melatonin 3 MG TAB PO SCH (20:07)
[2019-02-23] MEDS: Atorvastatin Calcium 10 MG TAB PO SCH (20:07)
[2019-02-23] MEDS: Zolpidem Tartrate 5 MG TAB PO SCH (20:08)
[2019-02-24] MEDS: Floranex Packet PO SCH (08:09)
[2019-02-24] MEDS: Potassium Chloride 10 MEQ TAB PO SCH ×2 (08:11→17:28)
[2019-02-24] MEDS: metFORMIN 500 MG TAB PO SCH (08:11)
[2019-02-24] MEDS: Allopurinol 100 MG TAB PO SCH (08:12)
[2019-02-24] MEDS: Apixaban 5 MG TAB PO SCH ×2 (08:12→21:24)
[2019-02-24] MEDS: Metolazone 5 MG TAB PO SCH (08:12)
[2019-02-24] MEDS: Gabapentin 300 MG CAP PO SCH ×2 (08:13→21:25)
[2019-02-24] MEDS: Folic Acid 1 MG TAB PO SCH (08:13)
[2019-02-24] MEDS: Carvedilol 6.25 MG TAB PO SCH ×2 (08:13→21:25)
[2019-02-24] MEDS: Torsemide 20 MG TAB PO SCH (08:14)
[2019-02-24] MEDS: Nystatin Powder 15 GM BOT TOP SCH ×2 (08:14→21:27)
[2019-02-24] MEDS: Vit A,C & E/Lutein/Minerals Tablet PO SCH (08:14)
[2019-02-24] MEDS: Digoxin 0.125 MG TAB PO SCH (08:15)
[2019-02-24] MEDS: Lantus 1000 UNITS/10 ML VIAL SC SCH (08:38)
[2019-02-24] MEDS: Lantiseptic Ointment 130 GM JAR TOP SCH ×2 (08:40→21:25)
[2019-02-24] MEDS: Atorvastatin Calcium 10 MG TAB PO SCH (21:24)
[2019-02-24] MEDS: Melatonin 3 MG TAB PO SCH (21:25)
[2019-02-24] MEDS: Zolpidem Tartrate 5 MG TAB PO SCH (21:26)
[2019-02-25] MEDS: Floranex Packet PO SCH (08:09)
[2019-02-25] MEDS: Potassium Chloride 10 MEQ TAB PO SCH ×2 (08:12→17:23)
[2019-02-25] MEDS: metFORMIN 500 MG TAB PO SCH (08:12)
[2019-02-25] MEDS: Allopurinol 100 MG TAB PO SCH (08:13)
[2019-02-25] MEDS: Digoxin 0.125 MG TAB PO SCH (08:13)
[2019-02-25] MEDS: Metolazone 5 MG TAB PO SCH (08:13)
[2019-02-25] MEDS: Apixaban 5 MG TAB PO SCH ×2 (08:13→20:26)
[2019-02-25] MEDS: Carvedilol 6.25 MG TAB PO SCH ×2 (08:13→17:23)
[2019-02-25] MEDS: Vit A,C & E/Lutein/Minerals Tablet PO SCH (08:14)
[2019-02-25] MEDS: Folic Acid 1 MG TAB PO SCH (08:14)
[2019-02-25] MEDS: Torsemide 20 MG TAB PO SCH (08:14)
[2019-02-25] MEDS: Gabapentin 300 MG CAP PO SCH ×2 (08:14→20:28)
[2019-02-25] MEDS: Lantus 1000 UNITS/10 ML VIAL SC SCH (08:17)
[2019-02-25] MEDS: Nystatin Powder 15 GM BOT TOP SCH ×2 (08:17→20:29)
[2019-02-25] MEDS: Lantiseptic Ointment 130 GM JAR TOP SCH ×2 (08:20→20:30)
[2019-02-25] MEDS: Atorvastatin Calcium 10 MG TAB PO SCH (20:28)
[2019-02-25] MEDS: Melatonin 3 MG TAB PO SCH (20:29)
[2019-02-25] MEDS: Zolpidem Tartrate 5 MG TAB PO SCH (20:30)
[2019-02-26] MEDS: Floranex Packet PO SCH (08:30)
[2019-02-26] MEDS: Gabapentin 300 MG CAP PO SCH ×2 (08:30→20:47)
[2019-02-26] MEDS: Allopurinol 100 MG TAB PO SCH (08:31)
[2019-02-26] MEDS: Apixaban 5 MG TAB PO SCH ×2 (08:31→20:46)
[2019-02-26] MEDS: Potassium Chloride 10 MEQ TAB PO SCH ×2 (08:32→17:52)
[2019-02-26] MEDS: Vit A,C & E/Lutein/Minerals Tablet PO SCH (08:32)
[2019-02-26] MEDS: Folic Acid 1 MG TAB PO SCH (08:32)
[2019-02-26] MEDS: Torsemide 20 MG TAB PO SCH (08:32)
[2019-02-26] MEDS: Carvedilol 6.25 MG TAB PO SCH ×2 (08:32→17:52)
[2019-02-26] MEDS: metFORMIN 500 MG TAB PO SCH (08:32)
[2019-02-26] MEDS: Metolazone 5 MG TAB PO SCH (08:32)
[2019-02-26] MEDS: Digoxin 0.125 MG TAB PO SCH (08:32)
[2019-02-26] MEDS: Nystatin Powder 15 GM BOT TOP SCH ×2 (08:33→20:48)
[2019-02-26] MEDS: Lantus 1000 UNITS/10 ML VIAL SC SCH (08:33)
[2019-02-26] MEDS: Lantiseptic Ointment 130 GM JAR TOP SCH ×2 (08:35→20:49)
[2019-02-26] MEDS: Melatonin 3 MG TAB PO SCH (20:46)
[2019-02-26] MEDS: Atorvastatin Calcium 10 MG TAB PO SCH (20:47)
[2019-02-26] MEDS: Zolpidem Tartrate 5 MG TAB PO SCH (20:48)
[2019-02-27 08:23] VITALS: BP 111/50; TEMP 96.9
[2019-02-27] MEDS: Torsemide 20 MG TAB PO SCH (08:28)
[2019-02-27] MEDS: Allopurinol 100 MG TAB PO SCH (08:28)
[2019-02-27] MEDS: Metolazone 5 MG TAB PO SCH (08:28)
[2019-02-27] MEDS: Digoxin 0.125 MG TAB PO SCH (08:28)
[2019-02-27] MEDS: Vit A,C & E/Lutein/Minerals Tablet PO SCH (08:28)
[2019-02-27] MEDS: Folic Acid 1 MG TAB PO SCH (08:28)
[2019-02-27] MEDS: metFORMIN 500 MG TAB PO SCH (08:28)
[2019-02-27] MEDS: Carvedilol 6.25 MG TAB PO SCH (08:29)
[2019-02-27] MEDS: Floranex Packet PO SCH (08:29)
[2019-02-27] MEDS: Gabapentin 300 MG CAP PO SCH (08:29)
[2019-02-27] MEDS: Lantus 1000 UNITS/10 ML VIAL SC SCH (08:29)
[2019-02-27] MEDS: Potassium Chloride 10 MEQ TAB PO SCH (08:29)
[2019-02-27] MEDS: Apixaban 5 MG TAB PO SCH (08:29)
[2019-02-27] MEDS: Lantiseptic Ointment 130 GM JAR TOP SCH (08:30)
[2019-02-27] MEDS: Nystatin Powder 15 GM BOT TOP SCH (08:30)
--- NOTE | 2019-02-28 04:23 | DIS ---
DATE OF ADMISSION: 02/10/2019 DATE OF DISCHARGE: 02/27/2019 DISCHARGING PHYSICIAN: Dr. Blessing Mitchell. PRIMARY CARE PHYSICIAN: Dr. Sarthak Bustamante. DISCHARGE DIAGNOSES: 1. Physical deconditioning, improved. 2. Acute on chronic diastolic valve heart failure, resolved. 3. Type 2 diabetes. 4. Atrial fibrillation, rate controlled. 5. Status post pacemaker. 6. Hypertension. 7. Hyperlipidemia. 8. Respiratory failure with oxygen dependent and as needed. DISCHARGE MEDICATIONS: 1. Eliquis 2.5 b.i.d. 2. Allopurinol 300 daily. 3. Lipitor 10 at bedtime. 4. Coreg 6.25 b.i.d. 5. Digoxin 0.125 mg daily. 6. Folic acid 1 tab p.o. daily. 7. Gabapentin 300 b.i.d. 8. Melatonin 6 mg at bedtime. 9. Ambien 2.5 mg at bedtime. 10. Torsemide 20 daily. 11. Potassium chloride 20 mEq b.i.d. 12. Protonix 40 daily. 13. Metolazone 5 daily. 14. Metformin 1000 daily. DISCHARGE INSTRUCTIONS: [facility] to resume nursing care, physical and occupational therapy. Home health to encourage walking with a rolling walker at all times. Follow up with primary care physician, Dr. Bustamante in 1 week. Strict 2000 mL fluid restriction. Strict I's and O's and daily weights. BRIEF HOSPITAL COURSE: Ms. Pollack is a 78-year-old female who presented to [facility] after admission at [facility] in [place] on January 30, 2019. The patient was in the hospital in [place] until she was transferred to [facility] for skilled rehabilitation on February 10. The patient had been falling at home and due to this, she was confused, decreased appetite, weakness, and subsequently admitted to [facility] in [place], where she was treated with IV antibiotics. She had no fractures confirmed with multiple CTs, but she did have bruising and ecchymoses to extremities and the head. The patient also had a mild acute on chronic CHF that resolved with IV Lasix. The patient was subsequently transferred for skilled rehabilitation. During hospitalization here at [facility], she had episodes of recurrence of the UTI and she was treated with oral Cipro. Repeat confirmed resolution. The patient had episode of waxing and waning of memory and these progressively improved. She had another exacerbation of CHF. She was treated with IV Lasix for a couple of days and this significantly improved. The patient was able to participate in physical therapy and on day of discharge, she was able to walk with a rolling walker about 200 feet. The patient and requested to continue home health with physical therapy with [facility]. The patient was discharged home under the care of her in a stable condition. DISCHARGE VITAL SIGNS: Temperature 96.9, pulse 75, respiration 18, O2 saturation 98% on room air, blood pressure 111/50. Job ID: [id number]
== END 2019-02-27 14:41 | disposition home health service (06) | DRG 291 ==
LOC: MADMS 21:38
PROVIDERS: ADMIT Family Medicine; ATTEND Family Medicine
DX: I11.0 Hypertensive heart disease with heart failure (principal); J96.90 Respiratory failure, unspecified, unspecified whether with hypoxia or hypercapnia; N39.0 Urinary tract infection, site not specified; C85.10 Unspecified B-cell lymphoma, unspecified site; I50.33 Acute on chronic diastolic (congestive) heart failure; E11.9 Type 2 diabetes mellitus without complications; I48.91 Unspecified atrial fibrillation; E78.5 Hyperlipidemia, unspecified; I25.10 Atherosclerotic heart disease of native coronary artery without angina pectoris; K21.9 Gastro-esophageal reflux disease without esophagitis; J44.9 Chronic obstructive pulmonary disease, unspecified; R29.6 Repeated falls; R53.81 Other malaise; Z95.0 Presence of cardiac pacemaker; Z95.4 Presence of other heart-valve replacement; Z95.1 Presence of aortocoronary bypass graft; Z90.710 Acquired absence of both cervix and uterus; Z88.0 Allergy status to penicillin; Z88.2 Allergy status to sulfonamides; Z79.4 Long term (current) use of insulin
CPT/HCPCS: 36416; 80053; 81001; 82607; 83880; 84443; 85007; 85025; 85027; 87086; 36415-59; J1815; J1940

== ENCOUNTER 2019-04-21 13:29 | Outpatient (CLI) | payer MEDICARE ==
[2019-04-21 14:23] LABS: Anion Gap 18 mmol/L (10-20); BUN (Urea Nitrogen) 14 mg/dL (9.8-20.1); Calc. Creatinine Clearance 0 mL/min (70-130); Calcium 8.9 mg/dL (7.8-10.44); Carbon Dioxide 26 mmol/L (23-31); Chloride 95 mmol/L (98-107); Estimated GFR-MDRD 64; Glucose 187 mg/dL (83-110); Potassium 3.8 mmol/L (3.5-5.1); Sodium 135 mmol/L (136-145)
== END 2019-04-21 13:30 | disposition home or self-care (01) ==
LOC: MADLAB 13:29
PROVIDERS: ATTEND Nurse Practitioner Family
DX: I11.0 Hypertensive heart disease with heart failure (principal)
CPT/HCPCS: 80048

== ENCOUNTER 2019-07-14 12:37 | Outpatient (CLI) | payer MEDICARE ==
[2019-07-14 12:50] LABS: #Basophils 0.1 thou/uL (0.0-0.2); #Eosinphils 0.2 thou/uL (0.0-0.7); #Lymphocytes 0.8 thou/uL (1.20-3.40); #Monocytes 0.6 thou/uL (0.11-0.59); #Neutrophils 4.7 thou/uL (1.40-6.50); %Basophils 1.4 % (0.0-1.0); %Eosinophils 3.1 % (0.0-10.0); %Monocytes 9.2 % (0.0-10.0); %Neutrophils 73.3 % (42.0-75.0); Mean Corpuscular HGB CONC 33.2 g/dL (32.0-36.0); Mean Corpuscular Hemoglobin 29.5 pg (27.0-31.0); Mean Corpuscular Volume 88.8 fL (78.0-98.0); Mean Platelet Volume 7.6 fL (7.4-10.4); Platelet Count 201 thou/uL (130-400); RBC Distribution Width 13.7 % (11.5-14.5); Red Blood Cell (RBC) Count 4.08 mill/uL (4.20-5.40); White Blood Cell (WBC) Count 6.5 thou/uL (4.8-10.8)
[2019-07-14 13:03] LABS: ALT (SGPT) 18 U/L (8-55); AST (SGOT) 22 U/L (5-34); Albumin 3.7 g/dL (3.4-4.8); Alkaline Phosphatase 103 U/L (40-110); Anion Gap 17 mmol/L (10-20); BUN (Urea Nitrogen) 15 mg/dL (9.8-20.1); Bilirubin, Total 0.8 mg/dL (0.2-1.2); Calc. Creatinine Clearance 0 mL/min (70-130); Calcium 9.2 mg/dL (7.8-10.44); Carbon Dioxide 26 mmol/L (23-31); Chloride 103 mmol/L (98-107); Estimated GFR-MDRD 71; Globulin 2.2 g/dL (2.4-3.5); Glucose 78 mg/dL (83-110); Potassium 4.2 mmol/L (3.5-5.1); Protein, Total 5.9 g/dL (6.0-8.3); Sodium 142 mmol/L (136-145)
[2019-07-14 15:03] LABS: Bilirubin Negative (Negative); Blood, Urine Trace (Negative); Clarity Cloudy (Clear); Glucose, Urine (Dipstick) Negative (Negative); Leukocyte Moderate (Negative); Nitrite Positive (Negative); Protein, Urine (Dipstick) Negative (Neg-Trace); Urobilinogen 0.2 mg/dL (Less than 2)
[2019-07-14 15:09] LABS: Bacteria/HPF 4+ HPF (None Seen); Calcium Oxalate Crystals 2+ HPF (None Seen); RBC/HPF 0-3 HPF (0-3); WBC/HPF Greater Than 50 HPF (0-3)
[2019-07-14 17:09] LABS: Hemoglobin A1c 7.9 % (4.0-6.0)
== END 2019-07-14 12:38 | disposition home or self-care (01) ==
LOC: MADLAB 12:37
PROVIDERS: ATTEND Specialist
DX: I50.33 Acute on chronic diastolic (congestive) heart failure (principal); I25.10 Atherosclerotic heart disease of native coronary artery without angina pectoris; E11.65 Type 2 diabetes mellitus with hyperglycemia; Z87.440 Personal history of urinary (tract) infections
CPT/HCPCS: 80053; 81001; 83036; 85025; 87077; 87086; 87186